=== PATIENT | female | born 1995 | race Caucasian/White ===

== ENCOUNTER 2016-02-20 12:01 | Emergency (ER) | payer BC ==
--- NOTE | 2016-02-20 12:41 | ER Document Report ---
ED Medical Screen (RME) - General Chief Complaint: Abdominal Pain Stated Complaint: ABDOMINAL PAIN Time seen by provider: 12:36 Mode of Arrival: Ambulatory Information source: Patient TRAVEL OUTSIDE OF THE [place] IN LAST 30 DAYS: No - HPI Patient complains to provider of: ABD PAIN AND RECTAL BLEEDING Onset: Other - SINCE LAST MONTH Onset/Duration: Persistent Quality of pain: Sharp, Stabbing Severity: Severe Pain Level: 5 Associated Symptoms: Abdominal pain, Nausea. denies: Diarrhea, Vomiting Exacerbated by: Denies Relieved by: Denies Similar symptoms previously: Yes Recently seen / treated by doctor: Yes - Related Data Smoking: Quit less than 1 year Frequency of alcohol use: None Drug Abuse: None Allergies/Adverse Reactions: No Known Allergies Allergy (Verified 02/20/16 12:06) Past Medical History - General Last Menstrual Period: 01/18/2016 - Social History Chew tobacco use (# tins/day): No Frequency of alcohol use: None Drug Abuse: None Past Surgical History: Reports: Other Physical Exam - Vital signs Vitals: Temp Pulse Resp BP Pulse Ox 98.7 F 108 H 17 134/80 H 97 02/20/16 12:06 02/20/16 12:06 02/20/16 12:06 02/20/16 12:06 02/20/16 12:06 Course - Vital Signs Vital signs: Temp Pulse Resp BP Pulse Ox 98.7 F 108 H 17 134/80 H 97 02/20/16 12:06 02/20/16 12:06 02/20/16 12:06 02/20/16 12:06 02/20/16 12:06
[2016-02-20 13:02] LABS: ABSOLUTE BASOPHILS # (AUTO) 0.1 10^3/uL (0.0-0.2); ABSOLUTE EOSINOPHILS # (AUTO) 0.1 10^3/uL (0.0-0.6); ABSOLUTE LYMPHOCYTES (AUTO) 3.4 10^3/uL (0.5-4.7); ABSOLUTE MONOCYTES (AUTO) 0.8 10^3/uL (0.1-1.4); ABSOLUTE NEUT (AUTO) 7.3 10^3/uL (1.7-8.2); BASOPHILS % (AUTO) 0.6 % (0-2); EOSINOPHILS % (AUTO) 0.5 % (0-6); HEMATOCRIT 40.1 % (36.0-47.0); HEMOGLOBIN 13.6 g/dL (12.0-15.5); HGB HCT DIFFERENCE 0.7; LYMPHOCYTES % (AUTO) 29.3 % (13-45); MEAN CORPUSCULAR HEMOGLOBIN 30.5 pg (27.0-33.4); MEAN CORPUSCULAR VOLUME 90 fl (80-97); MONOCYTES % (AUTO) 6.9 % (3-13); RED BLOOD COUNT 4.46 10^6/uL (3.72-5.28); RED CELL DISTRIBUTION WIDTH 14.1 % (11.5-14.0); SEGMENTED NEUTROPHILS % (AUTO) 62.7 % (42-78); WHITE BLOOD COUNT 11.6 10^3/uL (4.0-10.5)
[2016-02-20 13:19] LABS: APPEARANCE,URINE CLEAR; BILIRUBIN,URINE NEGATIVE (NEGATIVE); GLUCOSE, URINE NEGATIVE (NEGATIVE); KETONES,URINE NEGATIVE (NEGATIVE); LEUKOCYTE ESTERASE,URINE NEGATIVE (NEGATIVE); NITRITE,URINE NEGATIVE (NEGATIVE); PROTEIN,URINE NEGATIVE (NEGATIVE); URINE SPECIFIC GRAVITY 1.025; UROBILINOGEN,URINE NEGATIVE mg/dL (<2.0)
[2016-02-20 13:20] LABS: ALANINE AMINOTRANSFERASE 41 U/L (9-52); ALBUMIN 3.8 g/dL (3.5-5.0); ALKALINE PHOSPHATASE 56 U/L (38-126); ANION GAP 10 (5-19); ASPARTATE AMINO TRANSFERASE 18 U/L (14-36); BACTERIA,URINE 1+ /HPF; BILIRUBIN,TOTAL 0.3 mg/dL (0.2-1.3); BLOOD UREA NITROGEN 14 mg/dL (7-20); CALCIUM 9.4 mg/dL (8.4-10.2); CARBON DIOXIDE 28 mmol/L (22-30); CHLORIDE 102 mmol/L (98-107); CREATININE RESULT 0.79 mg/dL (0.52-1.25); GLUCOSE 80 mg/dL (75-110); LIPASE 133.9 U/L (23-300); POTASSIUM 4.4 mmol/L (3.6-5.0); SODIUM 140.2 mmol/L (137-145); TOTAL PROTEIN 6.7 g/dL (6.3-8.2)
--- NOTE | 2016-02-20 14:31 | ER Document Report ---
ED General - General Chief Complaint: Abdominal Pain Stated Complaint: ABDOMINAL PAIN Time seen by provider: 14:25 Mode of Arrival: Ambulatory Information source: Patient Notes: 1-year-old female 1 para 1, last normal menstrual period January 17, sexually active (no control). The patient does have a history of intermittent abdominal pain for the past 3 years without further workup. She recently moved to the area and seeing Dr. Walton who has plans for GI workup. The patient presents to the emergency room with worsening abdominal pain over the last 3 days. Patient states she has had intermittent constipation with some rectal bleeding. She does have a whitish vaginal discharge. She does report dizziness. She denies fever, chills, nausea vomiting. TRAVEL OUTSIDE OF THE [place] IN LAST 30 DAYS: No - HPI Onset: Just prior to arrival Onset/Duration: Gradual Quality of pain: Dull Severity: Moderate Pain Level: 3 Associated symptoms: denies: Chills, Fever, Shortness of breath Exacerbated by: Food Relieved by: Denies Similar symptoms previously: Yes Recently seen / treated by doctor: No - Related Data Allergies/Adverse Reactions: No Known Allergies Allergy (Verified 02/20/16 12:06) Past Medical History - General Information source: Patient Last Menstrual Period: 01/18/2016 - Social History Smoking Status: Former Smoker Chew tobacco use (# tins/day): No Frequency of alcohol use: None Drug Abuse: None Lives with: Family Family History: None Patient has suicidal ideation: No Patient has homicidal ideation: No - Medical History Medical History: Negative Surgical Hx: Other - Noncontributory Past Surgical History: Reports: Other Review of Systems - Review of Systems Constitutional: denies: Chills, Fever EENT: No symptoms reported Cardiovascular: No symptoms reported Respiratory: No symptoms reported Gastrointestinal: See HPI Genitourinary: No symptoms reported Female Genitourinary: No symptoms reported Musculoskeletal: No symptoms reported Skin: No symptoms reported Hematologic/Lymphatic: No symptoms reported Neurological/Psychological: No symptoms reported Physical Exam - Vital signs Vitals: Temp Pulse Resp BP Pulse Ox 98.7 F 108 H 17 134/80 H 97 02/20/16 12:06 02/20/16 12:06 02/20/16 12:06 02/20/16 12:06 02/20/16 12:06 Notes: Physical exam: GENERAL: 20-year-old female, alert and oriented 3, no acute distress HEAD: Atraumatic, normocephalic. EYES: Pupils equal round and reactive to light, extraocular movements intact, sclera anicteric, conjunctiva are normal. ENT: TMs normal, nares patent, oropharynx clear without exudates. Moist mucous membranes. NECK: Normal range of motion, supple without lymphadenopathy or JVD. LUNGS: Breath sounds clear to auscultation bilaterally and equal. No wheezes rales or rhonchi. HEART: Regular rate and rhythm without murmurs, rubs or gallops. ABDOMEN: Soft, mild suprapubic tenderness without rebound or guarding, normoactive bowel sounds. No masses appreciated. Pelvic exam: External genitalia normal. Whitish discharge in vaginal vault. Cervix closed. No cervical motion tenderness. Mild uterine tenderness to palpation. EXTREMITIES: Normal range of motion, no pitting or edema. No clubbing or cyanosis. NEUROLOGICAL: Cranial nerves II through XII grossly intact. Normal speech, normal gait. PSYCH: Normal mood, normal affect. SKIN: Warm, Dry, normal turgor, no rashes or lesions noted. Bedside ultrasound: Right upper quadrant reveals gallbladder with a normal gallbladder wall, no gallstones, no pericholecystic fluid. No obvious identified via transabdominal ultrasound. Course - Re-evaluation Re-evalutation: 02/20/16 14:28 Ultrasound contacted for transvaginal ultrasound with Doppler. 02/20/16 18:37 02/20/16 18:39 Note: The patient's abdominal pain is more in the upper abdomen. She does not have a Steiner sign. Ultrasound doesn't show any evidence of gallbladder disease. She looks very comfortable on exam. She is and had mild uterine tenderness on exam. Ultrasound shows a possible early at 4 weeks intrauterine. This is still nondiagnostic of definitive at this stage and I've discussed this with the patient and I have advised her to return to the emergency room for any vaginal bleeding or worsening abdominal pain. I have advised her to [facility] the [facility]. 02/20/16 23:53 - Vital Signs Vital signs: Temp Pulse Resp BP Pulse Ox 98.2 F 89 18 126/69 H 99 02/20/16 19:01 02/20/16 19:01 02/20/16 19:01 02/20/16 19:01 02/20/16 19:01 - Laboratory Result Diagrams: 02/20/16 12:49 02/20/16 12:49 Laboratory results interpreted by me: 02/20/16 02/20/16 12:49 12:49 WBC 11.6 H RDW 14.1 H Beta HCG, Quant 929.02 H Discharge - Discharge Clinical Impression: first trimester , abdominal pain Condition: Stable Disposition: HOME, SELF-CARE Instructions: Pelvic Pain in ([facility]) Additional Instructions: Recommendations: As we discussed, the ultrasound shows a very early at approximately 4 weeks. However, as we discussed, it is too early to say definitively that the is in the correct location (this usually occurs when we can visualize a heartbeat which is normally in the sixth week of ). I would like you to follow-up with the [facility]. The Macrobid you're taking is safe in . You can finish this. Return to the ER for worsening pain, vaginal bleeding, feeling faint. Call the [facility] tomorrow for the next available follow-up: Tell them you were evaluated for early and the ultrasound was "nondiagnostic" in the ER doctor wanted you followed up within the next week. Forms: Return to Work Referrals: ETHAN WALTON MD [Primary Care Provider] - Follow up as needed LUCIA REAGAN MD [ACTIVE STAFF] - Follow up in 1 week
[2016-02-20 16:14] LABS: CHLAM PCR NOT DETECTED (NOT DETECT)
[2016-02-20 19:08] VITALS: BP 126/69
== END 2016-02-20 19:01 | disposition home or self-care (01) ==
LOC: ER 12:01
DX: R10.9 Unspecified abdominal pain (principal); K59.00 Constipation, unspecified; R42 Dizziness and giddiness; N89.8 Other specified noninflammatory disorders of vagina; Z87.891 Personal history of nicotine dependence; Z3A.01 Less than 8 weeks gestation of pregnancy
CPT/HCPCS: 36415; 76817; 80053; 81001; 83690; 84702; 85025; 87086; 87210; 87491; 87591; 93976; 99284

== ENCOUNTER 2018-07-13 22:02 | Emergency (ER) | payer BC, MEDICAID ==
--- NOTE | 2018-07-13 23:22 | RADIOLOGY REPORT (SQ) ---
EXAM DESCRIPTION: XR CHEST 2 VIEWS COMPLETED DATE/TME: 07/13/2018 22:31 CLINICAL HISTORY: 23 years, Female, COUGH COMPARISON: None. NUMBER OF VIEWS: 2 TECHNIQUE: Frontal and lateral views of the chest LIMITATIONS: None. FINDINGS: Heart size is normal. Lungs are clear. No pneumothorax IMPRESSION: Negative chest copyright 2010 [employer]- All Rights Reserved
[2018-07-14] MEDS ORDERED: IPRATROPIUM/ALBUTEROL 0.5-2.5 MG/3 ML AMPUL NEB ONE
--- NOTE | 2018-07-14 00:02 | ER Document Report ---
ED Respiratory Problem - General Chief Complaint: Cough Stated Complaint: COUGH Time Seen by Provider: 07/13/18 22:31 Mode of Arrival: Ambulatory Information source: Patient TRAVEL OUTSIDE OF THE [place] IN LAST 30 DAYS: No - HPI Patient complains to provider of: Cough Notes: Patient is here with complaints of cough for about 2 months now. She states when she gets around cigarette smoke it seems to get worse. She states that she started vaping about 4 days ago. She was not a smoker prior. She denies any fevers. She also complains of a sore throat. And some nasal congestion and runny nose as well. She denies any numbness, tingling, weakness. No chest pain or shortness of breath. She states occasionally she feels like she has some trouble breathing when she is coughing around cigarette smokers. She denies any chest pain. No headache or blurred vision. No rash. No chronic lung disease. No other complaints at this time. - Related Data Allergies/Adverse Reactions: No Known Allergies Allergy (Verified 02/20/16 12:06) Past Medical History - Social History Smoking Status: Current Every Day Smoker Frequency of alcohol use: None Drug Abuse: None Family History: None Patient has suicidal ideation: No Patient has homicidal ideation: No Renal/ Medical History: Denies: Hx Peritoneal Dialysis Past Surgical History: Reports: Other Review of Systems - Review of Systems -: Yes All other systems reviewed and negative Physical Exam - Vital signs Vitals: Temp Pulse Resp BP Pulse Ox 98.5 F 99 18 128/89 H 99 07/13/18 22:14 07/13/18 22:14 07/13/18 22:14 07/13/18 22:14 07/13/18 22:14 - Notes Notes: GENERAL: alert, cooperative, nontoxic, no distress. HEAD: normocephalic, atraumatic EYES: conjunctiva pink without discharge, no external redness or swelling. EARS: no external swelling, no external redness, no mastoid redness, swelling, tenderness. Ear canals are clear without swelling or drainage. TMs pearly vann, no redness, no bulging, normal landmarks, no perforation. NOSE: atraumatic, no external swelling. clear rhinorrhea noted. MOUTH/THROAT: mucous membranes moist and pink, posterior pharynx without erythema, swelling, exudate. No trismus or drooling. NECK: soft, supple, full range of motion, no meningismus. CHEST: no distress, lungs clear and equal throughout. No wheezing, rales, rhonchi. Diminished breath sounds throughout. Bronchitic cough noted. CARDIAC: regular rate and rhythm, no murmur, normal capillary refill, normal pulses. No peripheral edema noted. BACK: full range of motion, no CVA tenderness. EXTREMITIES: full range of motion of all extremities. No redness, no swelling. NEURO: alert and oriented A&O3, no focal deficits, full range of motion of all extremities. PYSCH: appropriate mood, affect. Patient is cooperative. SKIN: pink, warm, dry, no rash. Course - Re-evaluation Re-evalutation: 07/14/18 00:53 Reevaluation shows improved air movement of the lungs. Lungs are clear. Patient is nontoxic-appearing with stable vitals. She is here with complaints of cough for the last few weeks with some sore throat as well. Exam is benign. She is not hypoxic, febrile or tachypneic. She is in no distress. Throat exam is unremarkable for any significant abnormalities. No sign of peritonsillar abscess, epiglottitis. Rapid strep was negative. Chest x-ray is negative. Patient was given a DuoNeb with improvement of her breath sounds. Patient likely with bronchitis. She recently started vaping about 4 days ago, did instruct the patient she should stop doing that at this time. Patient will be discharged home with prednisone, albuterol, Tessalon Perles. Instructions drink plenty of fluids. Follow-up with her doctor if not better in the next 3 to 5 days, sooner for worsening symptoms, high fever, significant trouble breathing, persistent vomiting, or for any further concerns. The patient's emergency department workup and current diagnosis were explained to the patient and or family. Follow-up instructions were provided. Medications if prescribed were discussed. Instructions for when to return to the emergency department including specific worrisome symptoms were discussed with the patient and/or family. - Vital Signs Vital signs: Temp Pulse Resp BP Pulse Ox 98.5 F 99 18 128/89 H 99 07/13/18 22:14 07/13/18 22:14 07/13/18 22:14 07/13/18 22:14 07/13/18 22:14 - Diagnostic Test Radiology reviewed: Image reviewed, Reports reviewed - Negative chest x-ray Discharge - Discharge Clinical Impression: Bronchitis Condition: Stable Disposition: HOME, SELF-CARE Instructions: Bronchitis ([facility]) Additional Instructions: Take medications as prescribed. Drink plenty fluids. Follow-up with your doctor if not better in the next 3 to 5 days, sooner for worsening symptoms, high fever, persistent vomiting, or for any further concerns. Stop vaping. Prescriptions: Benzonatate [Tessalon Perle 100 mg Capsule] 100 mg PO Q8HP PRN #20 cap PRN Reason: Benzonatate [Tessalon Perle 100 mg Capsule] 100 mg PO Q8HP PRN #20 cap PRN Reason: Albuterol Sulfate [Proair HFA Inhalation Aerosol 8.5 gm MDI] 2 puff IH Q4H PRN #1 mdi PRN Reason: Albuterol Sulfate [Proair HFA Inhalation Aerosol 8.5 gm MDI] 2 puff IH Q4H PRN #1 mdi PRN Reason: Prednisone [Deltasone 20 mg Tablet] 3 tab PO DAILY 5 Days tablet Prednisone [Deltasone 20 mg Tablet] 3 tab PO DAILY 5 Days tablet Referrals: [facility] [Provider Group] - Follow up as needed
[2018-07-14 01:02] VITALS: BP 123/69
== END 2018-07-14 01:07 | disposition home or self-care (01) ==
LOC: ER 22:02
DX: J40 Bronchitis, not specified as acute or chronic (principal); R05 Cough; J02.9 Acute pharyngitis, unspecified; R09.81 Nasal congestion; J34.89 Other specified disorders of nose and nasal sinuses; F17.290 Nicotine dependence, other tobacco product, uncomplicated
CPT/HCPCS: 94640; 99284; 87070; 87880; 71046; J7620

== ENCOUNTER 2018-07-15 16:47 | Emergency (ER) | payer BC, MEDICAID ==
[2018-07-15 17:10] VITALS: BP 121/64
--- NOTE | 2018-07-15 17:34 | ER Document Report ---
HPI - HPI Patient complains to provider of: work note, cough Time Seen by Provider: 07/15/18 17:23 Onset: Other Onset/Duration: Persistent Pain Level: 3 Context: Patient presents emergency department with complaints of breathing is worse. Patient reports she was evaluated in the emergency department 2 days ago and treated for bronchitis with several prescriptions. She has been unable to filler picker the prescriptions. She denies fever vomiting diarrhea. Patient reports she was vaping but was told to quit in she has not done vaping since the . She works at a [employer] center and it hurts her throat to talk. Associated Symptoms: None Exacerbated by: Denies Relieved by: Denies Similar symptoms previously: Yes Recently seen / treated by doctor: Yes - REPRODUCTIVE Reproductive: DENIES: : Past Medical History - General Information source: Patient Last Menstrual Period: may - Social History Smoking Status: Former Smoker Cigarette use (# per day): No - Patient reports she quit Frequency of alcohol use: None Drug Abuse: None Occupation: Call center Family History: None Patient has suicidal ideation: No Patient has homicidal ideation: No Pulmonary Medical History: Reports: Hx Bronchitis Renal/ Medical History: Denies: Hx Peritoneal Dialysis Surgical Hx: Negative Past Surgical History: Reports: Other Vertical Provider Document - CONSTITUTIONAL Agree With Documented VS: Yes Exam Limitations: No Limitations General Appearance: WD/WN, No Apparent Distress - INFECTION CONTROL TRAVEL OUTSIDE OF THE [place] IN LAST 30 DAYS: No - HEENT HEENT: Atraumatic, Normocephalic. negative: Pharyngeal Erythema - NECK Neck: Normal Inspection, Supple. negative: Lymphadenopathy-Left, Lymphadenopathy-Right - RESPIRATORY Respiratory: Breath Sounds Normal, No Respiratory Distress. negative: Rhonchi, Wheezing - CARDIOVASCULAR Cardiovascular: Regular Rate, Regular Rhythm - GI/ABDOMEN Gastrointestinal: Abdomen Soft, Abdomen Non-Tender - MUSCULOSKELETAL/EXTREMETIES Musculoskeletal/Extremeties: MAEW, FROM - NEURO Level of Consciousness: Awake, Alert, Appropriate Motor/Sensory: No Motor Deficit - DERM Integumentary: Warm, Dry Course - Re-evaluation Re-evalutation: 07/15/18 17:33 Patient looks good nontoxic no coughing noted during the entire assessment and interview. Patient will be given a work note instructed to filler picker her prescriptions. She verbalized understanding all instructions Dictation of this chart was performed using voice recognition software; therefore, there may be some unintended grammatical errors. - Vital Signs Vital signs: Temp Pulse Resp BP Pulse Ox 98.5 F 92 16 121/64 97 07/15/18 17:08 07/15/18 17:08 07/15/18 17:08 07/15/18 17:08 07/15/18 17:08 Discharge - Discharge Clinical Impression: Bronchitis, work note Condition: Stable Disposition: HOME, SELF-CARE Additional Instructions: *You have been evaluated for bronchitis, work noted *Increase fluid intake *Take medication as prescribed *Monitor your temperature, take Tylenol as indicated *Follow up with a primary care provider within one week for recheck *Return to ED for worsening condition, changes, needs Forms: Return to Work
== END 2018-07-15 17:35 | disposition home or self-care (01) ==
LOC: ER 16:47
DX: J40 Bronchitis, not specified as acute or chronic (principal); T50.906A Underdosing of unspecified drugs, medicaments and biological substances, initial encounter; Z91.128 Patient's intentional underdosing of medication regimen for other reason; Z91.14 Patient's other noncompliance with medication regimen; Z87.891 Personal history of nicotine dependence
CPT/HCPCS: 99284

== ENCOUNTER 2018-08-01 03:18 | Emergency (ER) | payer BC ==
[2018-08-01 05:03] LABS: ABSOLUTE BASOPHILS # (AUTO) 0.1 10^3/uL (0.0-0.2); ABSOLUTE LYMPHOCYTES (AUTO) 2.6 10^3/uL (0.5-4.7); ABSOLUTE MONOCYTES (AUTO) 0.7 10^3/uL (0.1-1.4); BASOPHILS % (AUTO) 1.2 % (0-2); EOSINOPHILS % (AUTO) 0.6 % (0-6); HEMATOCRIT 37.9 % (36.0-47.0); HEMOGLOBIN 13.1 g/dL (12.0-15.5); LYMPHOCYTES % (AUTO) 35.5 % (13-45); MEAN CORPUSCULAR HGB CONC 34.5 g/dL (32.0-36.0); MEAN CORPUSCULAR VOLUME 93 fl (80-97); MONOCYTES % (AUTO) 9.1 % (3-13); PLATELET COUNT 264 10^3/uL (150-450); RED BLOOD COUNT 4.08 10^6/uL (3.72-5.28); RED CELL DISTRIBUTION WIDTH 13.2 % (11.5-14.0); SEGMENTED NEUTROPHILS % (AUTO) 53.6 % (42-78); TOTAL CELLS COUNTED % (AUTO) 100 %; WHITE BLOOD COUNT 7.4 10^3/uL (4.0-10.5)
[2018-08-01 05:22] LABS: ANION GAP 9 (5-19); BLOOD UREA NITROGEN 14 mg/dL (7-20); CALCIUM 9.5 mg/dL (8.4-10.2); CARBON DIOXIDE 28 mmol/L (22-30); CHLORIDE 103 mmol/L (98-107); GLUCOSE 102 mg/dL (75-110); POTASSIUM 4.1 mmol/L (3.6-5.0); SODIUM 140.1 mmol/L (137-145)
--- NOTE | 2018-08-01 05:53 | ER Document Report ---
ED General - General TRAVEL OUTSIDE OF THE [place] IN LAST 30 DAYS: No <REMA PINTO - Last Filed: 08/01/18 06:07> <RAYNA ANNE - Last Filed: 08/01/18 07:19> - General Chief Complaint: Mouth Problem Stated Complaint: MOUTH PAIN Time Seen by Provider: 08/01/18 04:17 Primary Care Provider: CHI SHAFFER MD [ACTIVE STAFF] - Follow up as needed ANGELIC DAVIS DDS [ACTIVE STAFF] - Follow up as needed Notes: 23-year-old female presents emergency department complaining of right-sided facial pain and mouth pain that is been going on for approximately the past week. States it is associated with a white spot on her right lower gum that is bleeding and has been getting bigger. She is afraid she may have a dental abscess. Patient admits to chills and nausea, denies any vomiting. The pain worsens with food or with pressure on her face. Patient also complains of some abdominal pain associated with this which increases with food. Patient has not yet seen a dentist. (REMA PINTO) - Related Data Allergies/Adverse Reactions: No Known Allergies Allergy (Verified 08/01/18 03:21) Past Medical History - General Information source: Patient - Social History Smoking Status: Never Smoker Chew tobacco use (# tins/day): No Frequency of alcohol use: Occasional Drug Abuse: None Family History: Reviewed & Not Pertinent - Grandfather has a history of a dental abscess which the patient states almost killed him. Pulmonary Medical History: Reports: Hx Bronchitis Renal/ Medical History: Denies: Hx Peritoneal Dialysis Past Surgical History: Reports: Other <REMA PINTO - Last Filed: 08/01/18 06:07> Review of Systems - Review of Systems Constitutional: See HPI, Chills EENT: See HPI, Dental problem Cardiovascular: No symptoms reported Respiratory: No symptoms reported Gastrointestinal: See HPI -: Yes All other systems reviewed and negative <REMA PINTO - Last Filed: 08/01/18 06:07> Physical Exam - Vital signs Interpretation: Normal <REMA PINTO - Last Filed: 08/01/18 06:07> - Vital signs Vitals: Temp Pulse Resp BP Pulse Ox 98.2 F 98 20 130/67 H 99 08/01/18 03:22 08/01/18 03:22 08/01/18 03:22 08/01/18 03:22 08/01/18 03:22 - Notes Notes: GENERAL: Alert, interacts well. No acute distress. HEAD: Normocephalic, atraumatic EYES: Pupils equal, round and reactive to light, extraocular movements intact. ENT: Oral mucosa moist, tongue midline. Approximately 7 mm circular lesion noted to the right side of the posterior mandibular gingival mucosa just behind tooth #32. It is tender to palpation, friable, bleeds easily but is nonfluctuant. No surrounding erythema is noted. Patient does have tenderness across the angle of the mandible and below the jaw on the right-hand side. NECK: Full range of motion, supple, trachea midline. LUNGS: Clear to auscultation bilaterally, no wheezes, rales or rhonchi, no respiratory distress. HEART: Regular rate and rhythm, no murmurs, gallops, rubs. ABDOMEN: Soft, nontender, nondistended, bowel sounds present in all 4 quadrants. EXTREMITIES: Moves all 4 extremities spontaneously, no edema. No cyanosis. NEUROLOGICAL: Alert and oriented x3, normal speech, no facial droop. PSYCH: Normal mood, normal affect. SKIN: Warm, Dry, normal turgor, no rashes or lesions noted. (REMA PINTO) Course - Laboratory Result Diagrams: 08/01/18 04:45 08/01/18 04:45 <REMA PINTO - Last Filed: 08/01/18 06:07> - Laboratory Result Diagrams: 08/01/18 04:45 08/01/18 04:45 - Diagnostic Test Radiology reviewed: Reports reviewed - Transvaginal ultrasound shows trace free pelvic fluid. No intrauterine identified. <RAYNA ANNE - Last Filed: 08/01/18 07:19> - Re-evaluation Re-evalutation: 08/01/18 05:54 CBC unremarkable, BMP negative, test is positive. 08/01/18 06:07 CT scan of the face shows moderate submandibular lymphadenopathy right more than left, no drainable fluid collection. Patient will be started on Pen-Vee K by mouth. Quantitative hCG and transvaginal ultrasound has been ordered. Patient is requesting an today. Patient is informed that we do not perform abortions in the emergency department nor did we refer people for emergent abortions. Patient is given referral to local [facility] to discuss results of today's test and ultrasound. 08/01/18 06:08 Discussed with patient that the lesion in her mouth is likely an infection however I am concerned by how friable it is and the fact that it bleeds spontaneously and that there is no surrounding erythema. Patient does have a history of pre-cancerous cervical changes. Discussed with patient that the same virus that causes cervical cancer can also cause oral cancer. Patient is aware that if her lesion does not improve within the next week she will need to follow-up with a dentist or an oral surgeon for repeat examination and possible biopsy. 08/01/18 06:11 Dr. Spain will follow-up on the results of the transvaginal ultrasound for dating. 08/01/18 06:12 (REMA PINTO) 08/01/18 07:13 The patient's total beta-hCG level is 389.67, the ultrasound shows small amount of free pelvic fluid with no intrauterine identified. Ovaries are normal and there is no large adnexal masses identified. (RAYNA ANNE) - Vital Signs Vital signs: Temp Pulse Resp BP Pulse Ox 98.2 F 98 20 130/67 H 99 08/01/18 03:22 08/01/18 03:22 08/01/18 03:22 08/01/18 03:22 08/01/18 03:22 - Laboratory Laboratory results interpreted by me: 08/01/18 08/01/18 04:45 04:45 Serum HCG, Qual POSITIVE H Beta HCG, Quant 389.67 H Discharge <REMA PINTO - Last Filed: 08/01/18 06:07> <RAYNA ANNE - Last Filed: 08/01/18 07:19> - Discharge Clinical Impression: Oral ulcer, Dental infection Qualifiers: Weeks of gestation: unspecified Qualified Code(s): Z34.90 - Encounter for supervision of normal , unspecified, unspecified trimester Condition: Stable Disposition: HOME, SELF-CARE Additional Instructions: There is no sign of an abscess in your mouth. It does still appear to be infected. Please take the penicillin 1 tablet every 6 hours for the next 7 days until the antibiotic is gone. If this does not improve your symptoms and the lesion does not go completely away and stop bleeding it is very important that you follow-up with a dentist or oral surgeon as an outpatient to have a biopsy to make sure that this is not cancerous or precancerous like your cervical changes were. Both of these can be caused by HPV infections. You are . I have prescribed you antinausea medications and vitamins. Your ultrasound did not show a at this time. Your hormone level was quite low at 389.67 You most likely have a very early , however you will need close follow- up to include a repeat hormone level in 2 days, with a repeat ultrasound in the next several days. An ectopic cannot be excluded at this time. [facility]2018 for further evaluation of your . RETURN TO THE EMERGENCY ROOM IF ANY NEW OR WORSENING SYMPTOMS. Prescriptions: Ondansetron [Zofran Odt 4 mg Tablet] 1 - 2 tab PO Q4H PRN #15 tab.rapdis PRN Reason: For Nausea/Vomiting Penicillin V Potassium [Penicillin Vk 500 mg Tablet] 500 mg PO QID #28 tablet Pnv No.95/Ferrous Fum/Folic AC [ Vitamin Tablet] 1 each PO DAILY #30 tablet Promethazine HCl [Phenergan 25 mg Tablet] 1 - 2 tab PO Q6H PRN #15 tablet PRN Reason: Forms: Return to Work Referrals: ANGELIC DAVIS DDS [ACTIVE STAFF] - Follow up as needed [facility] [Provider Group] - 08/03/18
--- NOTE | 2018-08-01 06:02 | RADIOLOGY REPORT (SQ) ---
EXAM DESCRIPTION: CT MAXILLOFACIAL WITH IV CONTRAST COMPLETED DATE/TME: 08/01/2018 04:41 CLINICAL HISTORY: 23 years Female, possible abscess right lower jaw Comparison: None. Technique: IV contrast. Coronal and sagittal reformat. This exam was performed according to our departmental dose-optimization program, which includes automated exposure control, adjustment of the mA and/or kV according to patient size and/or use of iterative reconstruction technique.[facility]: Dose Right [facility]: CareDose [facility]: Dose Right [facility]: Teradose 4D [facility]: Smart Promoco LIMITATIONS: None Findings: Moderate submandibular lymphadenopathy, right more than left. No drainable fluid collection. No abscess. Well-corticated developmental or iatrogenic bilateral C5 laminar defects. Facial bones including orbits, nasal bone, paranasal sinuses, and pterygoid plates appear otherwise intact. Unremarkable partially visualized inferior cranium, temporal bone, and upper neck. IMPRESSION: 1. Moderate submandibular lymphadenopathy. 2. Chronic bilateral C5 laminar defects.
--- NOTE | 2018-08-01 06:46 | RADIOLOGY REPORT (SQ) ---
EXAM DESCRIPTION: US TRANSVAGINAL COMPLETED DATE/TME: 08/01/2018 05:54 EXAM DESCRIPTION: CLINICAL HISTORY: 23 years Female, abdominal pain, COMPARISON: None. TECHNIQUE: Complete first trimester obstetrical ultrasound with transvaginal imaging. FINDINGS: Uterus: The uterus measures 9.3 x 5.5 x 5.7 cm. No myometrial abnormalities. Gestational sac: Not identified. pole: Not identified. heart motion: Not identified. Yolk sac: Not identified. Placenta: Not identified. Right ovary: The right ovary measures 3.0 x 2.5 x 2.4 cm. Left ovary: The left ovary measures 2.1 x 1.8 x 1.4 cm. Adnexa: No large adnexal masses. Free fluid: Trace free pelvic fluid. Duplex imaging: Color and spectral Doppler imaging demonstrates blood flow within the ovaries bilaterally. IMPRESSION: 1. No intrauterine identified. Small amount of free pelvic fluid. Differential considerations include early normal , ectopic , and miscarriage. Close continued clinical, laboratory, and sonographic follow-up recommended.
[2018-08-01 07:42] VITALS: BP 130/70
== END 2018-08-01 07:30 | disposition home or self-care (01) ==
LOC: ER 03:18
DX: Z34.90 Encounter for supervision of normal pregnancy, unspecified, unspecified trimester (principal); K04.7 Periapical abscess without sinus; K12.1 Other forms of stomatitis; K08.89 Other specified disorders of teeth and supporting structures; R11.0 Nausea; R10.9 Unspecified abdominal pain; Z3A.00 Weeks of gestation of pregnancy not specified
CPT/HCPCS: 36415; 70487; 76817; 80048; 83690; 84702; 84703; 85025; 93976; 99283

== ENCOUNTER 2018-08-16 16:23 | Emergency (ER) | payer BC, MEDICAID ==
[2018-08-16] MEDS ORDERED: ONDANSETRON 4 MG TAB.RAPDIS PO ONE (16:39)
--- NOTE | 2018-08-16 16:41 | ER Document Report ---
ED Medical Screen (RME) - General Chief Complaint: Nausea/Vomiting Stated Complaint: FEVER Mode of Arrival: Ambulatory Information source: Patient Notes: Patient presents to the emergency department with complaints of nausea and vomiting all day. Reports fever of 100.1 earlier today. She is not taking anything for her fever. Also complains of some vaginal bleeding. Patient reports she recently went to [facility] and was seen for her . She was given the pill she took it Friday and . She reports she started bleeding after that. I have greeted and performed a rapid initial assessment of this patient. A comprehensive ED assessment and evaluation of the patient, analysis of test results and completion of the medical decision making process will be conducted by additional ED providers. Dictation of this chart was performed using voice recognition software; therefore, there may be some unintended grammatical errors. TRAVEL OUTSIDE OF THE [place] IN LAST 30 DAYS: No - Related Data Allergies/Adverse Reactions: No Known Allergies Allergy (Verified 08/01/18 03:21) Past Medical History Pulmonary Medical History: Reports: Hx Bronchitis Renal/ Medical History: Denies: Hx Peritoneal Dialysis Past Surgical History: Reports: Other Physical Exam - Vital signs Vitals: Temp Pulse Resp BP Pulse Ox 98.6 F 84 16 115/70 98 08/16/18 16:29 08/16/18 16:29 08/16/18 16:29 08/16/18 16:29 08/16/18 16:29 Course - Vital Signs Vital signs: Temp Pulse Resp BP Pulse Ox 98.6 F 84 16 115/70 98 08/16/18 16:29 08/16/18 16:29 08/16/18 16:29 08/16/18 16:29 08/16/18 16:29
[2018-08-16 17:04] LABS: ABSOLUTE EOSINOPHILS # (AUTO) 0.1 10^3/uL (0.0-0.6); ABSOLUTE LYMPHOCYTES (AUTO) 2.5 10^3/uL (0.5-4.7); ABSOLUTE MONOCYTES (AUTO) 0.5 10^3/uL (0.1-1.4); ABSOLUTE NEUT (AUTO) 3.3 10^3/uL (1.7-8.2); BASOPHILS % (AUTO) 0.7 % (0-2); HEMATOCRIT 39.2 % (36.0-47.0); HEMOGLOBIN 13.4 g/dL (12.0-15.5); LYMPHOCYTES % (AUTO) 39.4 % (13-45); MEAN CORPUSCULAR HEMOGLOBIN 31.8 pg (27.0-33.4); MEAN CORPUSCULAR HGB CONC 34.1 g/dL (32.0-36.0); MEAN CORPUSCULAR VOLUME 93 fl (80-97); MONOCYTES % (AUTO) 7.4 % (3-13); PLATELET COUNT 233 10^3/uL (150-450); RED CELL DISTRIBUTION WIDTH 12.9 % (11.5-14.0); SEGMENTED NEUTROPHILS % (AUTO) 51.5 % (42-78); TOTAL CELLS COUNTED % (AUTO) 100 %; WHITE BLOOD COUNT 6.5 10^3/uL (4.0-10.5)
[2018-08-16 17:11] LABS: APPEARANCE,URINE CLEAR; BILIRUBIN,URINE NEGATIVE (NEGATIVE); COLOR,URINE YELLOW; GLUCOSE, URINE NEGATIVE (NEGATIVE); KETONES,URINE NEGATIVE (NEGATIVE); LEUKOCYTE ESTERASE,URINE NEGATIVE (NEGATIVE); NITRITE,URINE NEGATIVE (NEGATIVE); PROTEIN,URINE NEGATIVE (NEGATIVE); URINE SPECIFIC GRAVITY 1.026; UROBILINOGEN,URINE NEGATIVE mg/dL (<2.0)
[2018-08-16 17:21] LABS: ANION GAP 9 (5-19); BLOOD UREA NITROGEN 13 mg/dL (7-20); CALCIUM 9.5 mg/dL (8.4-10.2); CARBON DIOXIDE 26 mmol/L (22-30); CHLORIDE 106 mmol/L (98-107); GLUCOSE 97 mg/dL (75-110); POTASSIUM 4.2 mmol/L (3.6-5.0); SODIUM 140.6 mmol/L (137-145)
--- NOTE | 2018-08-16 17:45 | ER Document Report ---
ED General - General Chief Complaint: Nausea/Vomiting Stated Complaint: FEVER Time Seen by Provider: 08/16/18 16:41 Mode of Arrival: Ambulatory Information source: Patient TRAVEL OUTSIDE OF THE [place] IN LAST 30 DAYS: No - HPI Patient complains to provider of: Fever, increased sleeping, throwing up, diarrhea, malodorous discharge Onset: This morning Onset/Duration: Sudden Quality of pain: No pain Severity: None Associated symptoms: Chills, Diarrhea, Fever, Nausea, Vomiting Exacerbated by: Denies Relieved by: Denies Similar symptoms previously: No Recently seen / treated by doctor: No Notes: 23-year-old female who was 4 weeks and had a chemical on the and took the second round of pills on the . As of this morning she has a fever and has been sleeping excessively. Also throwing up. Also having diarrhea. Sides are hurting and foul-smelling vaginal discharge. Requesting a work note. - Related Data Allergies/Adverse Reactions: No Known Allergies Allergy (Verified 08/01/18 03:21) Past Medical History - General Information source: Patient - Social History Smoking Status: Unknown if Ever Smoked Frequency of alcohol use: None Drug Abuse: None Lives with: Alone Family History: Reviewed & Not Pertinent - Grandfather has a history of a dental abscess which the patient states almost killed him. Patient has suicidal ideation: No Patient has homicidal ideation: No Pulmonary Medical History: Reports: Hx Bronchitis Renal/ Medical History: Denies: Hx Peritoneal Dialysis Past Surgical History: Reports: Other Review of Systems - Review of Systems Notes: Constitutional: Positive for fever. EENT: No eye redness. No eye pain. No ear pain. No sore throat. Cardiovascular: No chest pain. No palpitations. Respiratory: No cough. No shortness of breath. No respiratory distress. Gastrointestinal: Positive for abdominal pain, nausea, vomiting, diarrhea Genitourinary: Positive for foul-smelling discharge Musculoskeletal: Atraumatic. No swelling. No deformities. Skin: No rash or lesions. Lymphatic: No swollen lymph nodes. Neurologic: No headache. No syncope. Psychiatric: No suicidal or homicidal ideation. Physical Exam - Vital signs Vitals: Temp Pulse Resp BP Pulse Ox 98.6 F 84 16 115/70 98 08/16/18 16:29 08/16/18 16:29 08/16/18 16:29 08/16/18 16:29 08/16/18 16:29 - Notes Notes: General: Well-developed, well-nourished. In no acute distress. Non-toxic appearing. Cardiac: Well-perfused. Regular rate and rhythm. No murmurs, rubs, or gallops. Pulmonary: No respiratory distress. No cyanosis. Bilateral lung fiels are clear to auscultation. Abdominal: Non-distended. Non-rigid. Bowels sounds are present in all four quadrants. No guarding or rebound. HEENT: Head is atraumatic. Conjunctivae not reddened. No tearing. PERRL. EOMI. Orbits atraumatic. No periorbital swelling or erythema. Oropharynx is without erythema, swelling, or exudates. Neck: Supple. No adenopathy. No meningismus. Dermatologic: Warm with good turgor. No rash. Atraumatic. Chest: Atraumatic. No chest wall tenderness to palpation. Musculoskeletal: Moves all extremities well. No range of motion deficits. no muscular or joint tenderness. No paraspinal muscle tenderness. no midline spinal tenderness or step-off. Genitourinary: Gluing Machine Offbearer was present. External genitalia normal. Speculum exam revealed a small amount of dark blood in the vault. Cervix closed. There was no foul-smelling vaginal discharge on exam. There was no cervical motion tenderness. Cultures were obtained Neurologic: No gross neurologic deficits. Psychiatric: Normal mood. Course - Re-evaluation Re-evalutation: 08/16/18 17:46 Given patient's history, will check some lab work, urine, STD panel, ultrasound to make sure she is not retaining any products of conception. 08/16/18 19:55 Labs were reviewed and they were good. Urinalysis was clean. GC chlamydia and wet mount are sent. Ultrasound showed no retained products of conception. The patient at no time has looked in the least bit toxic during her stay here. She has been afebrile the whole time. Her vital signs of been completely stable. No tachycardia or hypotension. Her pelvic exam does not concern me for endometritis as there is absolutely no tenderness and no foul-smelling discharge. Definitely no concern for PID. Will discharge home - Vital Signs Vital signs: Temp Pulse Resp BP Pulse Ox 98.6 F 84 16 115/70 98 08/16/18 16:29 08/16/18 16:29 08/16/18 16:29 08/16/18 16:29 08/16/18 16:29 - Laboratory Result Diagrams: 08/16/18 16:50 08/16/18 16:50 Laboratory results interpreted by me: 08/16/18 08/16/18 16:50 16:50 Beta HCG, Quant 8.54 H Urine Ascorbic Acid 40 H Discharge - Discharge Clinical Impression: Febrile illness, acute Fatigue Qualifiers: Fatigue type: unspecified Qualified Code(s): R53.83 - Other fatigue Condition: Good Disposition: HOME, SELF-CARE Instructions: Fatigue ([facility]), Fever ([facility]) Additional Instructions: Be sure to get plenty of rest. Drink plenty fluids. Tylenol Motrin for fever. If you start to have worsening pelvic pain, high fever, nausea vomiting, or any new symptoms you feel needs to be evaluated you may return to emergency department. Otherwise follow-up with your primary care doctor or [facility]. We will notify you if any of your swabs come back positive and need treatment. Forms: Return to Work Referrals: [facility] [Provider Group] - Follow up as needed
--- NOTE | 2018-08-16 19:35 | RADIOLOGY REPORT (SQ) ---
EXAM DESCRIPTION: U/S OB TRANSVAGINAL W/O DOP COMPLETED DATE/TIME: 08/16/2018 7:07 pm REASON FOR STUDY: recent AB. Has fever chills, and malodorous lochia COMPARISON: None. TECHNIQUE: Transvaginal and transabdominal static and realtime grayscale images acquired of the pelv is. Additional selected spectral and color Doppler images recorded. All images stored on PACs. [email or web address] LIMITATIONS: None. FINDINGS: No products of conception identified. Endometrial stripe 3 mm. UTERUS: No masses. No anomalies. CERVICAL LENGTH: 3.4 cm Closed. RIGHT ADNEXA: Normal ovary with normal vascular flow. No adnexal free fluid. No adnexal masses. LEFT ADNEXA: The left ovary is slightly enlarged measuring 5.0 x 3.3 x 2.7 cm. No discrete focal les ions are identified however the ovary is not well visualized. Arterial and venous Doppler flow is id entified. No adnexal free fluid. No adnexal masses. FREE FLUID: None. OTHER: No other significant finding. IMPRESSION: 1. No intrauterine products of conception are identified. Endometrial stripe thickness 3 mm. No free fluid or other abnormality of the pelvis. 2. The left ovary is slightly enlarged measuring 5.0 x 3.3 x 2.7 cm. No discrete focal lesions are i dentified however the ovary is not well visualized. Arterial and venous Doppler flow is identified. TECHNICAL DOCUMENTATION: JOB ID: [id number] [employer]- All Rights Reserved rev-07/04 Reading location - IP/workstation name: [email or web address]
[2018-08-16 20:06] VITALS: BP 117/73
[2018-08-16 20:15] LABS: BACTERIA (WET MOUNT) 4+ BACTERIA SEEN; RBCS (WET MOUNT) FEW RBCS SEEN; WBCS (WET MOUNT) 4+ WBCS SEEN; YEAST (WET MOUNT) NO YEAST SEEN
[2018-08-16 21:32] LABS: CHLAM PCR DETECTED (NOT DETECT)
== END 2018-08-16 20:32 | disposition home or self-care (01) ==
LOC: ER 16:23
DX: R50.9 Fever, unspecified (principal); R53.83 Other fatigue; R11.2 Nausea with vomiting, unspecified; R19.7 Diarrhea, unspecified; R10.9 Unspecified abdominal pain
CPT/HCPCS: 99283; 36415; 87210; 84702; 85025; 80048; 81001; 87491; 87591; 76817; S0119

== ENCOUNTER 2018-08-31 12:40 | Emergency (ER) | payer BC | END 2018-08-31 14:00 | disposition left against medical advice (07) | LOC: ER 12:40 | DX: Z53.21 Procedure and treatment not carried out due to patient leaving prior to being seen by health care provider (principal) ==

== ENCOUNTER 2018-08-31 18:03 | Emergency (ER) | payer BC ==
--- NOTE | 2018-08-31 19:13 | ER Document Report ---
ED Medical Screen (RME) - General Chief Complaint: Abdominal Pain Stated Complaint: ABDOMINAL PAIN,LIGHT HEADED,VOMITING Time Seen by Provider: 08/31/18 19:09 Mode of Arrival: Ambulatory Information source: Patient Notes: Patient presents today with complaints of feeling hot nausea vomiting diarrhea short of breath and vaginal itching discharge. Patient reports she had an almost 1 month ago. She is having these symptoms since that time. Patient is talking a clear voice no shortness of breath no retractions I have greeted and performed a rapid initial assessment of this patient. A comprehensive ED assessment and evaluation of the patient, analysis of test results and completion of the medical decision making process will be conducted by additional ED providers. Dictation of this chart was performed using voice recognition software; therefore, there may be some unintended grammatical errors. TRAVEL OUTSIDE OF THE [place] IN LAST 30 DAYS: No - Related Data Allergies/Adverse Reactions: No Known Allergies Allergy (Verified 08/31/18 18:04) Past Medical History Pulmonary Medical History: Reports: Hx Bronchitis Renal/ Medical History: Denies: Hx Peritoneal Dialysis Past Surgical History: Reports: Other Physical Exam - Vital signs Vitals: Temp Pulse Resp BP Pulse Ox 97.9 F 88 18 131/66 H 98 08/31/18 18:11 08/31/18 18:11 08/31/18 18:11 08/31/18 18:11 08/31/18 18:11 Course - Vital Signs Vital signs: Temp Pulse Resp BP Pulse Ox 97.9 F 88 18 131/66 H 98 08/31/18 18:11 08/31/18 18:11 08/31/18 18:11 08/31/18 18:11 08/31/18 18:11
--- NOTE | 2018-08-31 19:51 | RADIOLOGY REPORT (SQ) ---
EXAM DESCRIPTION: CHEST 2 VIEWS COMPLETED DATE/TIME: 08/31/2018 7:29 pm REASON FOR STUDY: sob COMPARISON: 07/13/2018 TECHNIQUE: Frontal and lateral radiographic views of the chest acquired. NUMBER OF VIEWS: Two view. LIMITATIONS: None. FINDINGS: LUNGS AND PLEURA: No pneumothorax. No consolidation or pleural effusion. MEDIASTINUM AND HILAR STRUCTURES: Stable. HEART AND VASCULAR STRUCTURES: Stable. BONES: No acute findings. HARDWARE: None in the chest. OTHER: No other significant finding. IMPRESSION: NO ACUTE FINDINGS. TECHNICAL DOCUMENTATION: JOB ID: [id number] [place]-72 2010 [employer]- All Rights Reserved Reading location - IP/workstation name: [email or web address]
[2018-08-31 20:25] LABS: ABSOLUTE EOSINOPHILS # (AUTO) 0.1 10^3/uL (0.0-0.6); ABSOLUTE LYMPHOCYTES (AUTO) 2.6 10^3/uL (0.5-4.7); ABSOLUTE MONOCYTES (AUTO) 0.5 10^3/uL (0.1-1.4); ABSOLUTE NEUT (AUTO) 3.7 10^3/uL (1.7-8.2); BASOPHILS % (AUTO) 0.6 % (0-2); EOSINOPHILS % (AUTO) 1.5 % (0-6); HEMATOCRIT 40.4 % (36.0-47.0); HEMOGLOBIN 13.6 g/dL (12.0-15.5); LYMPHOCYTES % (AUTO) 37.9 % (13-45); MEAN CORPUSCULAR HEMOGLOBIN 31.6 pg (27.0-33.4); MEAN CORPUSCULAR HGB CONC 33.7 g/dL (32.0-36.0); MEAN CORPUSCULAR VOLUME 94 fl (80-97); MONOCYTES % (AUTO) 7.4 % (3-13); PLATELET COUNT 252 10^3/uL (150-450); RED BLOOD COUNT 4.31 10^6/uL (3.72-5.28); RED CELL DISTRIBUTION WIDTH 12.8 % (11.5-14.0); SEGMENTED NEUTROPHILS % (AUTO) 52.6 % (42-78); TOTAL CELLS COUNTED % (AUTO) 100 %
[2018-08-31 20:29] LABS: AMORPHOUS SEDIMENT,URINE TRACE /HPF; APPEARANCE,URINE CLOUDY; BILIRUBIN,URINE NEGATIVE (NEGATIVE); COLOR,URINE YELLOW; GLUCOSE, URINE NEGATIVE (NEGATIVE); KETONES,URINE NEGATIVE (NEGATIVE); LEUKOCYTE ESTERASE,URINE SMALL (NEGATIVE); NITRITE,URINE NEGATIVE (NEGATIVE); PROTEIN,URINE NEGATIVE (NEGATIVE); URINE SPECIFIC GRAVITY 1.024; UROBILINOGEN,URINE NEGATIVE mg/dL (<2.0)
[2018-08-31 20:45] LABS: ALANINE AMINOTRANSFERASE 22 U/L (9-52); ALBUMIN 4.4 g/dL (3.5-5.0); ALKALINE PHOSPHATASE 54 U/L (38-126); ANION GAP 8 (5-19); ASPARTATE AMINO TRANSFERASE 17 U/L (14-36); BILIRUBIN,DIRECT 0.1 mg/dL (0.0-0.4); BILIRUBIN,TOTAL 0.2 mg/dL (0.2-1.3); BLOOD UREA NITROGEN 12 mg/dL (7-20); CALCIUM 9.5 mg/dL (8.4-10.2); CARBON DIOXIDE 31 mmol/L (22-30); CHLORIDE 100 mmol/L (98-107); GLUCOSE 81 mg/dL (75-110); POTASSIUM 4.4 mmol/L (3.6-5.0); TOTAL PROTEIN 7.2 g/dL (6.3-8.2)
[2018-09-01 02:09] VITALS: BP 119/69
--- NOTE | 2018-09-01 02:30 | ER Document Report ---
ED General - General Chief Complaint: Abdominal Pain Stated Complaint: ABDOMINAL PAIN,LIGHT HEADED,VOMITING Time Seen by Provider: 08/31/18 19:09 Mode of Arrival: Ambulatory TRAVEL OUTSIDE OF THE [place] IN LAST 30 DAYS: No - HPI Notes: Patient is a 23-year-old female who presents to the emergency department for evaluation of multiple complaints. First she states she is felt "short of breath and hot" for about a month. She also complains of abdominal pain is been present for about 2 weeks. She states she has had 6-8 episodes of watery diarrhea today. She said nausea, one episode of emesis as well. Emesis she states her abdominal pain is present as well, and changes position. It is not constant, nothing seems to make it better or worse. Patient also had a medical performed last month. No D&E was necessary, the patient was given oral medications only. She had a normal menstrual period following the administration of this medication. Patient also notes that she was diagnosed with chlamydia last month. She states she was treated, but would like to "make sure it is gone." She also states she has had vaginal itching. - Related Data Allergies/Adverse Reactions: No Known Allergies Allergy (Verified 08/31/18 18:04) Past Medical History - General Information source: Patient - Social History Smoking Status: Never Smoker Frequency of alcohol use: None Drug Abuse: None Family History: Reviewed & Not Pertinent - Grandfather has a history of a dental abscess which the patient states almost killed him. Patient has suicidal ideation: No Patient has homicidal ideation: No Pulmonary Medical History: Reports: Hx Bronchitis Renal/ Medical History: Denies: Hx Peritoneal Dialysis Past Surgical History: Reports: Other Review of Systems - Review of Systems Constitutional: No symptoms reported EENT: No symptoms reported Cardiovascular: No symptoms reported Respiratory: See HPI Gastrointestinal: See HPI Genitourinary: See HPI Female Genitourinary: See HPI Musculoskeletal: No symptoms reported Skin: No symptoms reported Neurological/Psychological: No symptoms reported Physical Exam - Vital signs Vitals: Temp Pulse Resp BP Pulse Ox 97.9 F 88 18 131/66 H 98 08/31/18 18:11 08/31/18 18:11 08/31/18 18:11 08/31/18 18:11 08/31/18 18:11 - Notes Notes: Vital signs reviewed, please refer to chart. Head is normocephalic, atraumatic. Pupils equal round, reactive to light. Neck is supple without meningismus. Heart is regular rate and rhythm. Lungs are clear to auscultation bilaterally. Abdomen is soft, nontender, normoactive bowel sounds throughout. Pelvic exam is performed. Normal external genitalia without lesions. Speculum exam revealed white adherent discharge in the vaginal vault. Cervical loss was closed. No clear lesions. No bleeding. No cervical motion tenderness. Extremities without cyanosis, clubbing. Posterior calves are nontender. Peripheral pulses are equal. Skin is warm and dry. Patient is awake, alert, neurological exam is nonfocal. Course - Re-evaluation Re-evalutation: 09/01/18 02:52 Patient presents emergency department for evaluation. She is complaining of multiple issues. She complains of shortness of breath, but is oxygenating 100% on room air, has clear lungs, and a normal respiratory rate. Laboratory investigations were entirely unremarkable. My suspicion is that her intermittent abdominal pain was secondary to a likely viral illness. She did not have any diarrhea or vomiting while here. She is feeling somewhat improved in regards to that. Her findings on pelvic exam are most consistent with vaginal candidiasis. I will go ahead and treat her empirically with Diflucan, she is told to obtain [id number]-[id number] yeast medication. I strongly encouraged her to follow-up with [facility] as well. She was told that gonorrhea and Chlamydia testing would be performed. I did not see any findings necessarily consistent with that on exam, and the patient states she has not been reexposed to the person who had given her chlamydia recently. I do believe is reasonable to watch and wait for results. Patient is amenable to this as well. She is to return to the ED with worsening or new concerning symptoms of any sort. 09/01/18 02:59 Pelvic exam was chaperoned by MARLI Wilson. - Vital Signs Vital signs: Temp Pulse Resp BP Pulse Ox 97.7 F 63 18 119/69 99 09/01/18 02:00 09/01/18 02:00 09/01/18 02:00 09/01/18 02:00 09/01/18 02:00 - Laboratory Result Diagrams: 08/31/18 20:00 08/31/18 20:00 Laboratory results interpreted by me: 07/15/19 07/15/19 20:00 20:00 Carbon Dioxide 31 H Ur Leukocyte Esterase SMALL H Urine Ascorbic Acid 20 H - Diagnostic Test Radiology reviewed: Reports reviewed Radiology results interpreted by me: 09/01/18 02:52 Chest X-Ray 08/31/18 19:12 IMPRESSION: NO ACUTE FINDINGS. Discharge - Discharge Clinical Impression: Vaginal candidiasis Dyspnea Qualifiers: Dyspnea type: unspecified Qualified Code(s): R06.00 - Dyspnea, unspecified Abdominal pain Qualifiers: Abdominal location: generalized Qualified Code(s): R10.84 - Generalized abdominal pain Diarrhea Qualifiers: Diarrhea type: presumed infectious Qualified Code(s): R19.7 - Diarrhea, unspecified Condition: Stable Disposition: HOME, SELF-CARE Instructions: Abdominal Pain ([facility]), Dyspnea, Nonspecific ([facility]), Vaginal Yeast Infection ([facility]) Additional Instructions: No clear cause was found today for your shortness of breath. Your chest x-ray was normal. Your labs showed no significant abnormalities. Your findings are most consistent with a vaginal yeast infection. You were treated with Diflucan, but should also obtain [id number]-[id number] yeast infection medication, i.e. Monistat, and use as directed. Follow-up with your primary care physician and gynecology this week. Return to the emergency department with worsening or new concerning symptoms of any sort.
[2018-09-01] MEDS ORDERED: FLUCONAZOLE 100 MG TABLET PO ONE (02:51)
[2018-09-01 03:10] LABS: T.VAGINALIS (WET MOUNT) NO TRICHOMONAS SEEN; WBCS (WET MOUNT) 3+ WBCS SEEN; YEAST (WET MOUNT) NO YEAST SEEN
[2018-09-01 03:11] LABS: BACTERIA (WET MOUNT) 4+ BACTERIA SEEN; RBCS (WET MOUNT) FEW RBCS SEEN
[2018-09-01 04:34] LABS: CHLAM PCR NOT DETECTED (NOT DETECT)
== END 2018-09-01 03:05 | disposition home or self-care (01) ==
LOC: ER 18:03
DX: R06.02 Shortness of breath (principal); B37.3 Candidiasis of vulva and vagina; R10.84 Generalized abdominal pain; R19.7 Diarrhea, unspecified; R11.2 Nausea with vomiting, unspecified; Z09 Encounter for follow-up examination after completed treatment for conditions other than malignant neoplasm; Z86.19 Personal history of other infectious and parasitic diseases
CPT/HCPCS: 36415; 71046; 80053; 81001; 81025; 85025; 87210; 87491; 87591; 99284

== ENCOUNTER → 2018-12-10 | Outpatient (CLI) | payer BC ==
--- NOTE | 2018-12-10 10:03 | RADIOLOGY REPORT (SQ) ---
EXAM DESCRIPTION: KUB COMPLETED DATE/TIME: 12/10/2018 9:13 am REASON FOR STUDY: GENERALIZED ABD. PAIN R10.84 GENERALIZED ABDOMINAL PAIN COMPARISON: None. NUMBER OF VIEWS: One view. TECHNIQUE: Supine radiographic image of the abdomen acquired. LIMITATIONS: None. FINDINGS: BOWEL GAS PATTERN: Normal bowel gas pattern. No dilated loops. CALCIFICATIONS: No suspicious calcifications. SOFT TISSUES: No gross mass or suggestion of organomegaly. HARDWARE: None in the abdomen. BONES: No acute fracture. Spina bifida occulta at S1, normal anatomic variant. OTHER: No other significant finding. IMPRESSION: 1. NO RADIOGRAPHIC EVIDENCE FOR ACUTE ABDOMINAL DISEASE. TECHNICAL DOCUMENTATION: JOB ID: [id number] [employer]- All Rights Reserved Reading location - IP/workstation name: [email or web address]
== END ==
LOC: OD 08:59
PROVIDERS: ATTEND Nurse Practitioner Family
DX: R10.84 Generalized abdominal pain (principal)
CPT/HCPCS: 74018

== ENCOUNTER 2019-02-28 11:31 | Emergency (ER) | payer OTHER, BC ==
[2019-02-28] MEDS ORDERED: IBUPROFEN 800 MG TABLET PO ONE (12:38)
--- NOTE | 2019-02-28 12:46 | ER Document Report ---
HPI - HPI Patient complains to provider of: RIGHT ANKLE PAIN Time Seen by Provider: 02/28/19 12:36 Onset: Yesterday Onset/Duration: Sudden Quality of pain: Achy Pain Level: 4 Context: 23-year-old female presents emergency with complaints of right medial ankle pain. Reports she works at the [employer]. She reports she was walking and hit her ankle on a pot that was sticking out. Denies past medical history of injury to the ankle. Patient reports she thought she felt fine last night woke up this morning ankles hurting her unable to walk. No other complaints such as fever vomiting diarrhea. Associated Symptoms: None Exacerbated by: Denies Relieved by: Denies Similar symptoms previously: No Recently seen / treated by doctor: No - REPRODUCTIVE Reproductive: DENIES: : - MUSCULOSKELETAL Musculoskeletal: REPORTS: Extremity pain - R ankle - DERM Skin Color: Normal Past Medical History - General Information source: Patient - Social History Smoking Status: Never Smoker Chew tobacco use (# tins/day): No Frequency of alcohol use: None Drug Abuse: None Occupation: [employer] Family History: Reviewed & Not Pertinent - Grandfather has a history of a dental abscess which the patient states almost killed him. Patient has suicidal ideation: No Patient has homicidal ideation: No Pulmonary Medical History: Reports: Hx Bronchitis Renal/ Medical History: Denies: Hx Peritoneal Dialysis Surgical Hx: Negative Past Surgical History: Reports: Other Vertical Provider Document - CONSTITUTIONAL Agree With Documented VS: Yes Exam Limitations: No Limitations General Appearance: WD/WN, No Apparent Distress - INFECTION CONTROL TRAVEL OUTSIDE OF THE [place] IN LAST 30 DAYS: No - HEENT HEENT: Atraumatic, Normocephalic - NECK Neck: Supple - RESPIRATORY Respiratory: No Respiratory Distress - CARDIOVASCULAR Cardiovascular: Regular Rate - MUSCULOSKELETAL/EXTREMETIES Musculoskeletal/Extremeties: MAEW, FROM, Tender - Right medial ankle tender to palpate no obvious deformity good pedal pulse cap refill less than 2 seconds. - NEURO Level of Consciousness: Awake, Alert, Appropriate Motor/Sensory: No Motor Deficit - DERM Integumentary: Warm, Dry Course - Re-evaluation Re-evalutation: 02/28/19 12:46 23-year-old female presents with complaints of right ankle pain after she hit her ankle on a pot yesterday while working in the [employer]. No obvious deformity no erythema no swelling no warmth Ankle X-Ray 02/28/19 12:38 IMPRESSION: Mild soft tissue swelling. No acute fracture or dislocation. 02/28/19 14:01 Patient instructed no acute fracture. Instructed on Danilo wrap crutches for comfo rt take Motrin as indicated. She verbalized understanding to all instructions - Vital Signs Vital signs: Temp Pulse Resp BP Pulse Ox 98.1 F 82 18 122/73 99 02/28/19 12:28 02/28/19 12:28 02/28/19 12:28 02/28/19 12:28 02/28/19 12:28 - Diagnostic Test Radiology reviewed: Image reviewed, Reports reviewed Procedures - Immobilization Right Ankle Pre-Proc Neuro Vasc Exam: Normal Immobilizer type: Danilo wrap Performed by: PCT Post-Proc Neuro Vasc Exam: Unchanged from pre-exam Discharge - Discharge Clinical Impression: Right ankle pain Qualifiers: Chronicity: acute Qualified Code(s): M25.571 - Pain in right ankle and joints of right foot Condition: Stable Disposition: HOME, SELF-CARE Instructions: Danilo Wrap ([facility]), Use of Crutches ([facility]), Use of Befb-Aud-Oqyxaui Ibuprofen ([facility]), Ice & Elevation ([facility]) Additional Instructions: *You have been evaluated for an ankle injury *Rest/Ice/Elevate your ankle *Maintain the danilo wrap and use your crutches for the next three days *Follow up with orthopedics within 1 week for continued pain and recheck *Take ibuprofen as indicated for pain *Return to ED for worsening condition, changes, needs Forms: Return to Work Referrals: BULL ROBLES NP [Primary Care Provider] - Follow up in 1 week
--- NOTE | 2019-02-28 13:34 | RADIOLOGY REPORT (SQ) ---
EXAM DESCRIPTION: ANKLE RIGHT COMPLETE COMPLETED DATE/TIME: 02/28/2019 12:08 pm REASON FOR STUDY: ANKLE PAIN COMPARISON: None. NUMBER OF VIEWS: Three views. TECHNIQUE: AP, lateral, and oblique radiographic images acquired of the right ankle. LIMITATIONS: None. FINDINGS: MINERALIZATION: Normal. BONES: No acute fracture or dislocation. No worrisome bone lesions. JOINTS: No effusions. SOFT TISSUES: Mild soft tissue swelling at the medial malleolus. OTHER: No other significant finding. IMPRESSION: Mild soft tissue swelling. No acute fracture or dislocation. TECHNICAL DOCUMENTATION: JOB ID: [id number]- All Rights Reserved Reading location - IP/workstation name: [email or web address]
[2019-02-28 14:06] VITALS: BP 143/83
== END 2019-02-28 14:05 | disposition home or self-care (01) ==
LOC: ER 11:31
DX: M25.571 Pain in right ankle and joints of right foot (principal); W22.09XA Striking against other stationary object, initial encounter; Y99.0 Civilian activity done for income or pay
CPT/HCPCS: 99283

== ENCOUNTER 2019-04-29 00:41 | Emergency (ER) | payer BC ==
[2019-04-29 01:39] LABS: ABSOLUTE BASOPHILS # (AUTO) 0.1 10^3/uL (0.0-0.2); ABSOLUTE EOSINOPHILS # (AUTO) 0.1 10^3/uL (0.0-0.6); ABSOLUTE LYMPHOCYTES (AUTO) 3.2 10^3/uL (0.5-4.7); ABSOLUTE MONOCYTES (AUTO) 0.7 10^3/uL (0.1-1.4); ABSOLUTE NEUT (AUTO) 4.8 10^3/uL (1.7-8.2); BASOPHILS % (AUTO) 1.2 % (0-2); EOSINOPHILS % (AUTO) 0.7 % (0-6); HEMATOCRIT 40.1 % (36.0-47.0); HEMOGLOBIN 13.9 g/dL (12.0-15.5); LYMPHOCYTES % (AUTO) 36.6 % (13-45); MEAN CORPUSCULAR HEMOGLOBIN 32.1 pg (27.0-33.4); MEAN CORPUSCULAR HGB CONC 34.7 g/dL (32.0-36.0); MEAN CORPUSCULAR VOLUME 92 fl (80-97); MONOCYTES % (AUTO) 7.8 % (3-13); PLATELET COUNT 255 10^3/uL (150-450); RED BLOOD COUNT 4.34 10^6/uL (3.72-5.28); RED CELL DISTRIBUTION WIDTH 13.2 % (11.5-14.0); SEGMENTED NEUTROPHILS % (AUTO) 53.7 % (42-78); TOTAL CELLS COUNTED % (AUTO) 100 %; WHITE BLOOD COUNT 8.8 10^3/uL (4.0-10.5)
[2019-04-29 01:45] LABS: APPEARANCE,URINE SLIGHTLY-CLOUDY; BILIRUBIN,URINE NEGATIVE (NEGATIVE); COLOR,URINE YELLOW; GLUCOSE, URINE NEGATIVE (NEGATIVE); KETONES,URINE NEGATIVE (NEGATIVE); LEUKOCYTE ESTERASE,URINE NEGATIVE (NEGATIVE); NITRITE,URINE NEGATIVE (NEGATIVE); PROTEIN,URINE NEGATIVE (NEGATIVE); URINE SPECIFIC GRAVITY 1.024; UROBILINOGEN,URINE NEGATIVE mg/dL (<2.0)
[2019-04-29 01:58] LABS: ADD MANUAL MICROSCOPIC YES
[2019-04-29 01:59] LABS: RBC,URINE NONE SEEN /HPF; WBC,URINE NONE SEEN /HPF
[2019-04-29 03:08] LABS: CHLAM PCR NOT DETECTED (NOT DETECT)
--- NOTE | 2019-04-29 04:20 | ER Document Report ---
ED GI/ - General Chief Complaint: Vaginal Bleeding Stated Complaint: VAGINAL BLEEDING Time Seen by Provider: 04/29/19 03:32 Primary Care Provider: BULL ROBLES NP [Primary Care Provider] - Follow up as needed Notes: 23-year-old woman presents to the emergency department with a history of therapeutic approximately 2 months ago. Has had some complaint of spotting and pain with intercourse. Last normal menstrual period was 4 months ago. She came to the emergency department to be checked, she has a history of prior diagnosis of chlamydia. She is concerned that she may have recurrence. TRAVEL OUTSIDE OF THE [place] IN LAST 30 DAYS: No - Related Data Allergies/Adverse Reactions: No Known Allergies Allergy (Verified 02/28/19 12:34) Past Medical History - Social History Smoking Status: Never Smoker Chew tobacco use (# tins/day): No Frequency of alcohol use: Social Drug Abuse: None Family History: Reviewed & Not Pertinent - Grandfather has a history of a dental abscess which the patient states almost killed him. Patient has suicidal ideation: No Patient has homicidal ideation: No Pulmonary Medical History: Reports: Hx Bronchitis Renal/ Medical History: Denies: Hx Peritoneal Dialysis Past Surgical History: Reports: Other Review of Systems - Review of Systems Notes: Constitutional: Negative for fever. HENT: Negative for sore throat. Eyes: Negative for visual changes. Cardiovascular: Negative for chest pain. Respiratory: Negative for shortness of breath. Gastrointestinal: Negative for abdominal pain, vomiting or diarrhea. Genitourinary: Spotting vaginal bleeding, + painful intercourse. Musculoskeletal: Negative for back pain. Skin: Negative for rash. Neurological: Negative for headaches, weakness or numbness. 10 point ROS negative except as marked above and in HPI. Physical Exam - Vital signs Vitals: Temp Pulse Resp BP Pulse Ox 98.0 F 86 16 134/73 H 98 04/29/19 00:48 04/29/19 00:48 04/29/19 00:48 04/29/19 00:48 04/29/19 00:48 - Notes Notes: PHYSICAL EXAMINATION: Physical Exam: General: Well-nourished well-developed 23-year-old woman in no acute distress HEENT: NC/AT, pupils equal round and reactive to light, MM moist,nares clear, oropharynx clear, airway patent Neck: supple, no adenopathy, no masses. Good range of motion Lungs: clear, no wheezing, no rales no rhonchi CVS: Regular rate and rhythm no murmur gallop or rub Abdomen: Soft, active, nontender, no masses, no hepatosplenomegaly Ext: No edema, clubbing or cyanosis. Neuro: Alert and responsive, moving all 4 extremities on command, cranial nerves intact, no focal findings Skin: Intact no open lesions, no rash PSYCH: Normal mood, normal affect. Course - Re-evaluation Re-evalutation: 04/29/19 04:21 I reviewed the labs reveal a negative chlamydia and negative GC on the urine PCR, urinalysis is negative and CBC normal. I have relayed the findings of these studies to the patient and explained that she needs to follow-up with a WEB MASTER for Pap smear and WEB MASTER health. She is not taking control at this point - Vital Signs Vital signs: Temp Pulse Resp BP Pulse Ox 98.0 F 86 16 134/73 H 98 04/29/19 00:48 04/29/19 00:48 04/29/19 00:48 04/29/19 00:48 04/29/19 00:48 - Laboratory Result Diagrams: 04/29/19 01:22 Laboratory results interpreted by me: 04/29/19 01:16 Urine Ascorbic Acid 40 H 04/29/19 04:22 I have reviewed laboratory data and used this information for the treatment decisions regarding the patient. Discharge - Discharge Clinical Impression: Dyspareunia, Spotting Condition: Good Disposition: HOME, SELF-CARE Additional Instructions: You were diagnosed with the pain on intercourse as well as spotting vaginal bleeding. Is suggested that follow-up with BUSINESS ADMINISTRATION INSTRUCTOR, Pap smear and WEB MASTER health evaluation would be a reasonable follow-up. We are referring you to Dr. Reta Ayala. These call referral and schedule an appointment as this part of your health care is most important. If you have increasing difficulties or worsening symptoms/concerns you may return to the emergency department for further evaluation. HOME CARE INSTRUCTIONS & INFORMATION: Thank you for choosing us for your medical needs. We hope you're satisfied with the care you received. After you leave, you must properly care for your problem and, at the same time, observe its progress. Any condition can change. Some illnesses can change rapidly over hours or days. If your condition worsens, return to the Emergency Department or see your physician promptly. ABOUT YOUR X-RAYS AND EKG'S: If you had an EKG or X-rays taken, they have been read by the Emergency Physician. The X-rays and EKG's will also be read by a Radiologist or Ocean Import Representative within 24 hours. If discrepancies are noted, you will be notified by telephone. Please be certain the ED has a correct telephone number & address where you can be reached. Also, realize that some fractures or abnormalities do not show up on initial X-rays. If your symptoms continue, see your physician. ABOUT YOUR LABORATORY TEST: If you had laboratory tests, the results have been reviewed by the Emergency Physician. Some test results (for example cultures) may not be available for several days. You will be contacted if any test result shows you need additional treatment. Please be certain the ED has a correct telephone number and address where you can be reached. ABOUT YOUR MEDICATIONS: You will receive instructions on how to take your medicine on the prescription label you receive. Additional information may be p rovided by the Pharmacy. If you have questions afterwards, call the ED for clarification or further instructions. Some prescribed medications may cause drowsiness. Do not perform tasks such as driving a car or operating machinery without consulting your Pharmacist. If you feel you need a refill of pain medication, your condition will need re-evaluation. Please do not call for a refill of any medication. ABOUT YOUR SIGNATURE: Signature of this document acknowledges to followin. Understanding that you received emergency treatment and that you may be released before al medical problems are known or treated. Please be certain the ED has a correct phone number & address where you can be reached. 2. Acknowledgement that you will arrange for follow-up care as recommended. 3. Authorization for the Emergency Physician to provide information to your follow-up Physician in order to maximize your care. AT ANY TIME, IF YOUR SYMPTOMS CHANGE SIGNIFICANTLY OR WORSEN OR YOU DEVELOP NEW SYMPTOMS, RETURN TO THE EMERGENCY DEPARTMENT IMMEDIATELY FOR RE-EVALUATION. OUR GOAL IS TO PROVIDE EXCELLENT MEDICAL CARE! WE HOPE THAT WE HAVE MET YOUR EXPECTATIONS DURING YOUR EMERGENCY DEPARTMENT VISIT AND THAT YOU FEEL YOU HAVE RECEIVED EXCELLENT CARE! Referrals: BULL ROBLES NP [Primary Care Provider] - Follow up as needed
[2019-04-29 04:52] VITALS: BP 132/69
== END 2019-04-29 04:52 | disposition home or self-care (01) ==
LOC: ER 00:41
DX: N93.9 Abnormal uterine and vaginal bleeding, unspecified (principal); N94.10 Unspecified dyspareunia
CPT/HCPCS: 36415; 81001; 81025; 85025; 87491; 87591; 99284

== ENCOUNTER 2019-07-10 11:22 | Emergency (ER) | payer BC ==
--- NOTE | 2019-07-10 11:32 | ER Document Report ---
ED Medical Screen (RME) - General Chief Complaint: Abdominal Pain Stated Complaint: ABDOMINAL PAIN Time Seen by Provider: 07/10/19 11:24 Primary Care Provider: BULL ROBLES NP [Primary Care Provider] - Follow up as needed Mode of Arrival: Ambulatory Information source: Patient Notes: 24-year-old female with history of depression presents emergency department with complaints of abdominal cramps low back pain and blood on her stool. Patient gives history of going to the urgent care last week because her hips and her back were hurting. She was treated with muscle relaxers and ibuprofen. She reports approximately 3 days ago she noted blood in her stool and when she wiped. Denies history of GI bleed. Reports her back and hips hurt when she stands up a lot. She works at the [employer]. She denies fever vomiting diarrhea. Reports her stools have been hard. Patient reports she has not ate today and is requesting food. I have greeted and performed a rapid initial assessment of this patient. A comprehensive ED assessment and evaluation of the patient, analysis of test results and completion of the medical decision making process will be conducted by additional ED providers. TRAVEL OUTSIDE OF THE [place] IN LAST 30 DAYS: No - Related Data Allergies/Adverse Reactions: No Known Allergies Allergy (Verified 07/10/19 11:25) Past Medical History Pulmonary Medical History: Reports: Hx Bronchitis Renal/ Medical History: Denies: Hx Peritoneal Dialysis Past Surgical History: Reports: Other Doctor's Discharge - Discharge Referrals: BULL ROBLES NP [Primary Care Provider] - Follow up as needed
[2019-07-10 11:59] LABS: ABSOLUTE LYMPHOCYTES (AUTO) 2.1 10^3/uL (0.5-4.7); ABSOLUTE MONOCYTES (AUTO) 0.4 10^3/uL (0.1-1.4); ABSOLUTE NEUT (AUTO) 3.9 10^3/uL (1.7-8.2); BASOPHILS % (AUTO) 0.5 % (0-2); EOSINOPHILS % (AUTO) 0.7 % (0-6); HEMATOCRIT 40.2 % (36.0-47.0); HEMOGLOBIN 13.7 g/dL (12.0-15.5); LYMPHOCYTES % (AUTO) 32.1 % (13-45); MEAN CORPUSCULAR HEMOGLOBIN 31.5 pg (27.0-33.4); MEAN CORPUSCULAR HGB CONC 34.1 g/dL (32.0-36.0); MEAN CORPUSCULAR VOLUME 92 fl (80-97); MONOCYTES % (AUTO) 6.4 % (3-13); PLATELET COUNT 256 10^3/uL (150-450); RED BLOOD COUNT 4.35 10^6/uL (3.72-5.28); RED CELL DISTRIBUTION WIDTH 13.3 % (11.5-14.0); SEGMENTED NEUTROPHILS % (AUTO) 60.3 % (42-78); TOTAL CELLS COUNTED % (AUTO) 100 %; WHITE BLOOD COUNT 6.4 10^3/uL (4.0-10.5)
[2019-07-10 12:02] LABS: ALBUMIN 4.4 g/dL (3.5-5.0); ALKALINE PHOSPHATASE 54 U/L (38-126); ANION GAP 5 (5-19); ASPARTATE AMINO TRANSFERASE 19 U/L (14-36); BILIRUBIN,TOTAL 0.5 mg/dL (0.2-1.3); BLOOD UREA NITROGEN 14 mg/dL (7-20); CALCIUM 9.4 mg/dL (8.4-10.2); CARBON DIOXIDE 29 mmol/L (22-30); CHLORIDE 104 mmol/L (98-107); GLUCOSE 106 mg/dL (75-110); POTASSIUM 4.7 mmol/L (3.6-5.0); TOTAL PROTEIN 7.6 g/dL (6.3-8.2)
--- NOTE | 2019-07-10 12:19 | ER Document Report ---
Entered by TASHI JACOBS SCRIBE 07/10/19 1153 Acting as scribe for:SUSSY CHANEY DO ED General - General Chief Complaint: Bloody Stools Stated Complaint: ABDOMINAL PAIN Time Seen by Provider: 07/10/19 11:24 Primary Care Provider: BULL ROBLES NP [Primary Care Provider] - Follow up as needed Mode of Arrival: Ambulatory Information source: Patient Notes: This 24-year-old female presents to the emergency department complaining of a bdominal pain that began 2-3 days prior to arrival. Patient describes the pain as in the epigastric region, 5/10, sharp and coming and going. She explains that yesterday the abdominal pain "shot up into my chest". Patient stated that now she feels cramping and back pain. Patient reports rectal bleeding that she describes as mixed in with her stools and when wiping. Patient denies sick contact. Patient denies fever and dark urine. Patient is sexually active and mentions that she has had chlamydia in the past. Patient reports that her last normal menstrual period was three days ago. Patient reports vaginal discharge and foul smelling urine. Patient mentions that she has had two abortions in the past via pills. TRAVEL OUTSIDE OF THE [place] IN LAST 30 DAYS: No - Related Data Allergies/Adverse Reactions: No Known Allergies Allergy (Verified 07/10/19 11:25) Past Medical History - General Information source: Patient - Social History Smoking Status: Never Smoker Cigarette use (# per day): No Chew tobacco use (# tins/day): No Frequency of alcohol use: None Drug Abuse: None Family History: Reviewed & Not Pertinent - Grandfather has a history of a dental abscess which the patient states almost killed him. Patient has homicidal ideation: No Pulmonary Medical History: Reports: Hx Bronchitis Surgical Hx: Negative Review of Systems - Review of Systems Constitutional: See HPI. denies: Fever EENT: No symptoms reported Cardiovascular: No symptoms reported Respiratory: No symptoms reported Gastrointestinal: See HPI, Abdominal pain, Rectal bleeding Genitourinary: No symptoms reported Female Genitourinary: See HPI, Vaginal discharge Musculoskeletal: See HPI, Back pain Skin: No symptoms reported Hematologic/Lymphatic: No symptoms reported Neurological/Psychological: No symptoms reported -: Yes All other systems reviewed and negative Physical Exam - Vital signs Vitals: Temp 98.4 F 07/10/19 11:27 - Notes Notes: Physical Exam: General: Alert, appears well. HEENT: Normocephalic. Atraumatic. PERRL. Extraocular movements intact. Oropharynx clear. Neck: Supple. Non-tender. Respiratory: No respiratory distress. Clear and equal breath sounds bilaterally. Cardiovascular: Regular rate and rhythm. Abdominal: Mild epigastric tenderness to palpation. No distension. Normal Bowel Sounds. Back: No gross abnormalities. Extremities: Moves all four extremities. Upper extremities: Normal inspection. Normal ROM. Lower extremities: Normal inspection. No edema. Normal ROM. Neurological: Normal cognition. AAOx4. Normal speech. Psychological: Normal affect. Normal Mood. Skin: Warm. Dry. Normal color. Course - Re-evaluation Re-evalutation: 07/10/19 13:24 MDM 24 year old female arrives with complaints of blood mixed in stool and epigastric pain. Workup here is reassuring too. Discussed follow up and she expressed understanding. Also sexual indescretion recently and will culture but also treat. - Vital Signs Vital signs: Temp Pulse Resp BP Pulse Ox 98.4 F 07/10/19 11:27 - Laboratory Result Diagrams: 07/10/19 11:36 07/10/19 11:36 Laboratory results interpreted by me: 07/10/19 12:15 Lactic Acid 0.6 L Discharge - Discharge Clinical Impression: Epigastric pain, Rectal bleeding Condition: Good Disposition: HOME, SELF-CARE Instructions: Abdominal Pain ([facility]), Antispasmodics ([facility]) Additional Instructions: You should see a primary doctor to consider a gastroenterolgy referral regarding the rectal bleeding. Perhaps a colonscopy would be necessary. Return here for abdominal pain, fever weakness or other concerns. Prescriptions: Dicyclomine HCl [Bentyl 10 mg Capsule] 1 cap PO TID #30 cap Sucralfate [Carafate 1 gm Tablet] 1 gm PO ACHS #60 tablet Forms: Return to Work Referrals: BULL ROBLES NP [Primary Care Provider] - Follow up as needed I personally performed the services described in the documentation, reviewed and edited the documentation which was dictated to the scribe in my presence, and it accurately records my words and actions.
[2019-07-10 12:28] LABS: APPEARANCE,URINE CLEAR; BILIRUBIN,URINE NEGATIVE (NEGATIVE); COLOR,URINE YELLOW; GLUCOSE, URINE NEGATIVE (NEGATIVE); KETONES,URINE NEGATIVE (NEGATIVE); LEUKOCYTE ESTERASE,URINE NEGATIVE (NEGATIVE); NITRITE,URINE NEGATIVE (NEGATIVE); PROTEIN,URINE NEGATIVE (NEGATIVE); URINE SPECIFIC GRAVITY 1.016; UROBILINOGEN,URINE NEGATIVE mg/dL (<2.0)
[2019-07-10] MEDS ORDERED: CEFTRIAXONE INJ 250 MG VIAL IM ONE (13:23)
[2019-07-10] MEDS ORDERED: AZITHROMYCIN 1 GM SUSP PACKET PO ONE (13:23)
[2019-07-10] MEDS ORDERED: LIDOCAINE 1% INJ-PF (10 MG/ML) 30 ML SDV ONE (13:45)
[2019-07-10 13:58] LABS: CHLAM PCR DETECTED (NOT DETECT)
[2019-07-10 14:02] VITALS: BP 112/72
== END 2019-07-10 14:01 | disposition home or self-care (01) ==
LOC: ER 11:22
DX: R10.13 Epigastric pain (principal); R10.816 Epigastric abdominal tenderness; K62.5 Hemorrhage of anus and rectum; R25.2 Cramp and spasm; M54.9 Dorsalgia, unspecified; N89.8 Other specified noninflammatory disorders of vagina; R39.89 Other symptoms and signs involving the genitourinary system
CPT/HCPCS: 99284; 96372; 36415; 83605; 84703; 85025; 80053; 81001; 87491; 87591; J3490; Q0144; J0696

== ENCOUNTER 2019-09-04 14:17 | Emergency (ER) | payer BC | END 2019-09-04 15:45 | disposition left against medical advice (07) | LOC: ER 14:17 | DX: Z53.21 Procedure and treatment not carried out due to patient leaving prior to being seen by health care provider (principal) ==

== ENCOUNTER → 2019-09-04 | Outpatient (CLI) | payer BC ==
[2019-09-04 16:28] LABS: BACTERIA (WET MOUNT) 3+ BACTERIA SEEN; EPITHELIALS (WET MOUNT) 3+ EPITHELIALS SEEN; T.VAGINALIS (WET MOUNT) NO TRICHOMONAS SEEN; WBCS (WET MOUNT) FEW WBCS SEEN; YEAST (WET MOUNT) YEAST SEEN
[2019-09-04 17:55] LABS: CHLAM PCR NOT DETECTED (NOT DETECT)
== END ==
LOC: LAB 16:11
PROVIDERS: ATTEND Nurse Practitioner Acute Care
DX: N89.8 Other specified noninflammatory disorders of vagina (principal); R30.0 Dysuria
CPT/HCPCS: 81025; 87086; 87210; 87491; 87591

== ENCOUNTER → 2019-09-24 | Outpatient (CLI) | payer BC ==
[2019-09-24 11:07] LABS: APPEARANCE,URINE CLEAR; BILIRUBIN,URINE NEGATIVE (NEGATIVE); COLOR,URINE YELLOW; GLUCOSE, URINE NEGATIVE (NEGATIVE); KETONES,URINE NEGATIVE (NEGATIVE); LEUKOCYTE ESTERASE,URINE TRACE (NEGATIVE); NITRITE,URINE NEGATIVE (NEGATIVE); PROTEIN,URINE NEGATIVE (NEGATIVE); URINE SPECIFIC GRAVITY 1.013; UROBILINOGEN,URINE NEGATIVE mg/dL (<2.0)
== END ==
LOC: OD 09:45
PROVIDERS: ATTEND Physician Assistant
DX: R35.8 Other polyuria (principal); R35.0 Frequency of micturition; M54.6 Pain in thoracic spine; R53.83 Other fatigue
CPT/HCPCS: 81001; 87086

== ENCOUNTER → 2019-09-24 | Outpatient (CLI) | payer BC ==
--- NOTE | 2019-09-24 10:28 | RADIOLOGY REPORT (SQ) ---
EXAM DESCRIPTION: CHEST PA/LATERAL IMAGES COMPLETED DATE/TIME: 09/24/2019 10:16 am REASON FOR STUDY: COUGH COMPARISON: 08/31/2018 EXAM PARAMETERS: NUMBER OF VIEWS: two views TECHNIQUE: Digital Frontal and Lateral radiographic views of the chest acquired. RADIATION DOSE: NA LIMITATIONS: none FINDINGS: LUNGS AND PLEURA: No opacities, masses or pneumothorax. No pleural effusion. MEDIASTINUM AND HILAR STRUCTURES: No masses or contour abnormalities. HEART AND VASCULAR STRUCTURES: Heart normal size. No evidence for failure. BONES: No acute findings. HARDWARE: None in the chest. OTHER: No other significant finding. IMPRESSION: NO SIGNIFICANT RADIOGRAPHIC FINDING IN THE CHEST. TECHNICAL DOCUMENTATION: JOB ID: [id number] [employer]- All Rights Reserved Reading location - IP/workstation name: [email or web address]
== END ==
LOC: OD 09:48
PROVIDERS: ATTEND Nurse Practitioner Family
DX: R05 Cough (principal)
CPT/HCPCS: 71046

== ENCOUNTER → 2019-10-11 | Outpatient (CLI) | payer BC ==
[2019-10-11 11:32] LABS: HEMATOCRIT 41.1 % (36.0-47.0); HEMOGLOBIN 14.2 g/dL (12.0-15.5); MEAN CORPUSCULAR HEMOGLOBIN 31.6 pg (27.0-33.4); MEAN CORPUSCULAR HGB CONC 34.4 g/dL (32.0-36.0); MEAN CORPUSCULAR VOLUME 92 fl (80-97); PLATELET COUNT 212 10^3/uL (150-450); RED BLOOD COUNT 4.47 10^6/uL (3.72-5.28); RED CELL DISTRIBUTION WIDTH 12.9 % (11.5-14.0); WHITE BLOOD COUNT 6.4 10^3/uL (4.0-10.5)
[2019-10-11 12:07] LABS: ALBUMIN 4.3 g/dL (3.5-5.0); ALKALINE PHOSPHATASE 56 U/L (38-126); ANION GAP 7 (5-19); ASPARTATE AMINO TRANSFERASE 20 U/L (14-36); BILIRUBIN,DIRECT 0.1 mg/dL (0.0-0.4); BILIRUBIN,TOTAL 0.4 mg/dL (0.2-1.3); BLOOD UREA NITROGEN 14 mg/dL (7-20); CALCIUM 9.5 mg/dL (8.4-10.2); CARBON DIOXIDE 30 mmol/L (22-30); CHLORIDE 102 mmol/L (98-107); GLUCOSE 95 mg/dL (75-110); POTASSIUM 4.6 mmol/L (3.6-5.0); TOTAL PROTEIN 7.5 g/dL (6.3-8.2)
[2019-10-11 12:16] LABS: FREE T4 (FREE THYROXINE) 0.89 ng/dL (0.78-2.19)
[2019-10-11 12:30] LABS: THYROID STIMULATING HORMONE 2.22 uIU/mL (0.47-4.68)
[2019-10-13 10:31] LABS: EPSTEIN BARR NUCLEAR AG IGG AB <18.0 U/mL (0.0-17.9); EPSTEIN BARR VCA IGM AB <36.0 U/mL (0.0-35.9)
== END ==
LOC: OD 10:12
PROVIDERS: ATTEND Nurse Practitioner Family
DX: F33.9 Major depressive disorder, recurrent, unspecified (principal); R51 Headache
CPT/HCPCS: 36415; 80053; 82306; 84439; 84443; 85027; 86664; 86665

== ENCOUNTER 2019-10-28 15:40 | Emergency (ER) | payer BC ==
--- NOTE | 2019-10-28 15:59 | ER Document Report ---
ED Medical Screen (RME) - General Chief Complaint: Back Pain Stated Complaint: LOW BACK PAIN,ABDOMINAL PAIN Time Seen by Provider: 10/28/19 15:46 Primary Care Provider: BULL ROBLES NP [Primary Care Provider] - Follow up as needed TRAVEL OUTSIDE OF THE [place] IN LAST 30 DAYS: No - HPI Notes: 10/28/19 15:58 24-year-old female, G4, P2 elective Ab1, to the emergency department with lower abdominal cramping, low back pain, heavy vaginal bleeding. She states that her doctor called her today and asked her to come to the emergency department for further evaluation. She states that her doctor told her that she had low levels of hormone and her. Patient states she has had 2- test but she is not particularly sure if she is or not. Denies any fevers or chills. Admits to nausea. Admits to off-and-on headache. I performed a brief medical screening exam on the patient determined that the patient needs further evaluation and management by main side provider. I have placed initial orders to help expedite care. - Related Data Allergies/Adverse Reactions: No Known Allergies Allergy (Verified 07/10/19 11:25) Past Medical History - Social History Frequency of alcohol use: None Drug Abuse: None Pulmonary Medical History: Reports: Hx Bronchitis Renal/ Medical History: Denies: Hx Peritoneal Dialysis Past Surgical History: Reports: Other Physical Exam - Vital signs Vitals: Temp Pulse Resp BP Pulse Ox 98.5 F 97 16 142/70 H 98 10/28/19 15:45 10/28/19 15:45 10/28/19 15:45 10/28/19 15:45 10/28/19 15:45 Course - Vital Signs Vital signs: Temp Pulse Resp BP Pulse Ox 98.5 F 97 16 142/70 H 98 10/28/19 15:52 10/28/19 15:45 10/28/19 15:45 10/28/19 15:45 10/28/19 15:45 Doctor's Discharge - Discharge Referrals: BULL ROBLES NP [Primary Care Provider] - Follow up as needed
[2019-10-28 16:32] LABS: ABSOLUTE BASOPHILS # (AUTO) 0.1 10^3/uL (0.0-0.2); ABSOLUTE EOSINOPHILS # (AUTO) 0.1 10^3/uL (0.0-0.6); ABSOLUTE LYMPHOCYTES (AUTO) 2.7 10^3/uL (0.5-4.7); ABSOLUTE MONOCYTES (AUTO) 0.5 10^3/uL (0.1-1.4); ABSOLUTE NEUT (AUTO) 3.5 10^3/uL (1.7-8.2); BASOPHILS % (AUTO) 0.8 % (0-2); EOSINOPHILS % (AUTO) 1.1 % (0-6); HEMATOCRIT 41.6 % (36.0-47.0); HEMOGLOBIN 14.2 g/dL (12.0-15.5); LYMPHOCYTES % (AUTO) 38.8 % (13-45); MEAN CORPUSCULAR HEMOGLOBIN 31.6 pg (27.0-33.4); MEAN CORPUSCULAR HGB CONC 34.3 g/dL (32.0-36.0); MEAN CORPUSCULAR VOLUME 92 fl (80-97); PLATELET COUNT 244 10^3/uL (150-450); RED BLOOD COUNT 4.51 10^6/uL (3.72-5.28); RED CELL DISTRIBUTION WIDTH 13.4 % (11.5-14.0); SEGMENTED NEUTROPHILS % (AUTO) 51.3 % (42-78); TOTAL CELLS COUNTED % (AUTO) 100 %; WHITE BLOOD COUNT 6.9 10^3/uL (4.0-10.5)
[2019-10-28 16:40] LABS: APPEARANCE,URINE CLEAR; BILIRUBIN,URINE NEGATIVE (NEGATIVE); COLOR,URINE STRAW; GLUCOSE, URINE NEGATIVE (NEGATIVE); KETONES,URINE NEGATIVE (NEGATIVE); PROTEIN,URINE NEGATIVE (NEGATIVE); URINE SPECIFIC GRAVITY 1.017; UROBILINOGEN,URINE NEGATIVE mg/dL (<2.0)
[2019-10-28 16:50] LABS: ALBUMIN 4.5 g/dL (3.5-5.0); ALKALINE PHOSPHATASE 58 U/L (38-126); ANION GAP 11 (5-19); ASPARTATE AMINO TRANSFERASE 23 U/L (14-36); BILIRUBIN,DIRECT 0.2 mg/dL (0.0-0.4); BILIRUBIN,TOTAL 0.4 mg/dL (0.2-1.3); BLOOD UREA NITROGEN 16 mg/dL (7-20); CALCIUM 9.5 mg/dL (8.4-10.2); CARBON DIOXIDE 26 mmol/L (22-30); CHLORIDE 102 mmol/L (98-107); GLUCOSE 124 mg/dL (75-110); POTASSIUM 4.1 mmol/L (3.6-5.0); TOTAL PROTEIN 7.4 g/dL (6.3-8.2)
[2019-10-28] MEDS ORDERED: ACETAMINOPHEN 325 MG TABLET PO ONE (21:53)
--- NOTE | 2019-10-28 21:57 | ER Document Report ---
ED GI/ - General Chief Complaint: Back Pain Stated Complaint: LOW BACK PAIN,ABDOMINAL PAIN Time Seen by Provider: 10/28/19 15:46 Primary Care Provider: BULL ROBLES NP [Primary Care Provider] - Follow up as needed Notes: 24-year-old female past medical history significant for anxiety and depression presents to the emergency room complaining of vaginal bleeding with clots for the past 7 days. States the bleeding stopped yesterday. Patient states she was seen by her doctor's office on Friday for the vaginal bleeding. Was diagnosed with gonorrhea and was treated for both gonorrhea and chlamydia. Patient states she was called today and message was left on her voicemail stating that she had a positive test with an hCG of 13 and that she needed to go to the emergency room for further evaluation and treatment. Patient is complaining of some low back pain as well as pelvic pain. Unsure when her last previous menstrual cycle was. States she does not track them as they have been irregular for several months. Not currently using anything for control. Denies any nausea, vomiting, no shortness of breath, no difficulty breathing. Has not taken any medications for her symptoms. TRAVEL OUTSIDE OF THE [place] IN LAST 30 DAYS: No - Related Data Allergies/Adverse Reactions: No Known Allergies Allergy (Verified 07/10/19 11:25) Past Medical History - General Information source: Patient - Social History Smoking Status: Never Smoker Frequency of alcohol use: Social Drug Abuse: None Family History: Reviewed & Not Pertinent - Grandfather has a history of a dental abscess which the patient states almost killed him. Pulmonary Medical History: Reports: Hx Bronchitis Renal/ Medical History: Denies: Hx Peritoneal Dialysis Past Surgical History: Reports: Other Review of Systems - Review of Systems Constitutional: No symptoms reported EENT: No symptoms reported Cardiovascular: No symptoms reported Respiratory: No symptoms reported Gastrointestinal: No symptoms reported Genitourinary: No symptoms reported Female Genitourinary: Vaginal bleeding, Other - Pelvic pain Musculoskeletal: Back pain Skin: No symptoms reported Neurological/Psychological: No symptoms reported -: Yes All other systems reviewed and negative Physical Exam - Vital signs Vitals: Temp Pulse Resp BP Pulse Ox 98.5 F 97 16 142/70 H 98 10/28/19 15:45 10/28/19 15:45 10/28/19 15:45 10/28/19 15:45 10/28/19 15:45 - General General appearance: Appears well, Alert In distress: Mild - Respiratory Respiratory status: No respiratory distress Chest status: Nontender Breath sounds: Normal Chest palpation: Normal - Cardiovascular Rhythm: Regular Heart sounds: Normal auscultation Murmur: No - Abdominal Inspection: Normal Distension: No distension Bowel sounds: Normal Tenderness: Nontender Organomegaly: No organomegaly - Back Back: Normal, Tender - Tenderness on palpation in the lower lumbar region. Nontender to palpation over the vertebral spine. There is some lower lumbar muscle spasms palpated. No obvious deformity noted no step-offs. Negative straight leg raising bilaterally.. No: Deformity/step-off, CVA tenderness, Vertebra tenderness - Extremities General upper extremity: Normal inspection, Nontender, Normal color, Normal ROM, Normal temperature General lower extremity: Normal inspection, Nontender, Normal color, Normal ROM, Normal temperature, Normal weight bearing. No: Carlos's sign - Neurological Neuro grossly intact: Yes Cognition: Normal Orientation: AAOx4 Evelina Coma Scale Eye Opening: Spontaneous Evelina Coma Scale Verbal: Oriented Evelina Coma Scale Motor: Obeys Commands Evelina Coma Scale Total: 15 Speech: Normal Motor strength normal: LUE, RUE, LLE, RLE Sensory: Normal - Skin Skin Temperature: Warm Skin Moisture: Dry Skin Color: Normal Course - Re-evaluation Re-evalutation: 10/28/19 23:36 Patient is resting comfortably bleeding with some decreased pain but still complaining of some lower back pain. I have reviewed all the lab results and the ultrasound results with patient. There was some confusion about her having a positive test earlier at her doctor's office with blood work that was drawn on Friday. However her hCG here is negative as well as an hCG of less than 5 which constitutes a negative test. Patient also states she was treated for both gonorrhea and chlamydia on Friday at the doctor's office as those test results were also positive. Will give patient p.o. Flexeril and reevaluate for back pain. 10/29/19 00:54 Patient currently resting comfortably she is pain-free at this time. She is ambulatory with a steady gait. She has negative straight leg raising bilaterally. She is neurovascularly intact. Will be discharged home on p.o. Flexeril. She was counseled she can also take Tylenol and or Motrin as needed for pain. She is to follow-up outpatient with her PRODUCT DEVELOPMENT CARPENTER for further evaluation of her abnormal vaginal bleeding. Patient was given strict return to the emergency room guidelines. Return for any new or worsening symptoms. All questions were answered. Patient verbalized understanding and agrees with plan of care. 10/29/19 01:00 - Vital Signs Vital signs: Temp Pulse Resp BP Pulse Ox 98.5 F 97 16 142/70 H 98 10/28/19 15:52 10/28/19 15:45 10/28/19 15:45 10/28/19 15:45 10/28/19 15:45 - Laboratory Result Diagrams: 10/28/19 16:06 10/28/19 16:06 Laboratory results interpreted by me: 10/28/19 16:06 Glucose 124 H - Diagnostic Test Radiology reviewed: Reports reviewed Discharge - Discharge Clinical Impression: Dysfunctional uterine bleeding, Pelvic pain Back pain Qualifiers: Back pain location: low back pain Chronicity: acute Back pain laterality: midline Sciatica presence: without sciatica Qualified Code(s): M54.5 - Low back pain Condition: Stable Disposition: HOME, SELF-CARE Instructions: Dysfunctional Uterine Bleeding ([facility]), Low Back Pain ([facility]), Muscle Strain ([facility]), Pelvic Pain ([facility]) Additional Instructions: Medications as prescribed. Continue with Tylenol and/or Motrin as needed for pain. Outpatient follow-up with your COMMUNICATION STUDIES PROFESSOR as discussed. Return to the emergency room for any new or worsening symptoms. Prescriptions: Cyclobenzaprine HCl [Flexeril 10 mg Tablet] 10 mg PO TIDP PRN #15 tab PRN Reason: Forms: Return to Work Referrals: BULL ROBLES NP [Primary Care Provider] - Follow up as needed
--- NOTE | 2019-10-28 23:21 | RADIOLOGY REPORT (SQ) ---
US PELVIS HISTORY: Pelvic pain. Vaginal bleeding. COMPARISON: None. TECHNIQUE: Grayscale, color Doppler, and spectral Doppler ultrasound images of the pelvis were obtained. FINDINGS: The uterus is anteverted and measures 8.1 x 4.8 x 3.7 cm. The endometrium is 3 mm in thickness. The cervix is 2.4 cm in length. No intrauterine fibroids are seen. Both ovaries are normal in size and contain normal follicles, with the right ovary measuring 3.7 x 2.8 x 2.4 cm, and the left ovary measuring 2.6 x 1.7 x 1.8 cm. Normal color Doppler blood flow is seen in both ovaries. No free fluid is evident. IMPRESSION: Normal pelvic ultrasound.
[2019-10-28] MEDS ORDERED: CYCLOBENZAPRINE HCL 10 MG TABLET PO ONE (23:36)
[2019-10-29 01:13] VITALS: BP 119/78
== END 2019-10-29 01:14 | disposition home or self-care (01) ==
LOC: ER 15:40
DX: N93.8 Other specified abnormal uterine and vaginal bleeding (principal); R10.2 Pelvic and perineal pain; M54.5 Low back pain
CPT/HCPCS: 36415; 76830; 80053; 81001; 84702; 85025; 86900; 86901; 93976; 99284